=== PATIENT | female | born 1985 | race Caucasian/White ===

== ENCOUNTER 2016-12-06 14:29 | Emergency (ER) | payer OTHER ==
[~2016-12-06 14:29] MED LIST: /LAMO20TA; ACET50TA PO; ALBU17IN INH; ALBUPOW9 XX; AMBI10TA; BUPR15TA; CIPR500T4; DIFL150T; EFFE150C; IBUP80TA PO; MOM30SS PO; PRENTAB55 PO; PRENTAB7 PO; PRENTAB9 PO; RISP0.5T20; ZOLO100T
[2016-12-06] MEDS ORDERED: METOCLOPRAMIDE INJ 10MG/2ML VIAL (J2765) As Ordered ONE (15:19)
[2016-12-06] MEDS ORDERED: KETOROLAC 30 MG/ML VIAL (J1885) As Ordered ONE (15:19)
[2016-12-06] MEDS ORDERED: ACETAMINOPHEN 325 MG TAB As Ordered ONE (16:05)
[2016-12-06] MEDS ORDERED: ONDANSETRON 4MG/2ML VIAL (J2405) As Ordered ONE (17:02)
[2016-12-06] MEDS ORDERED: MORPHINE 4 MG/ML 1ML SYRINGE As Ordered ONE (17:02)
--- NOTE | 2016-12-06 18:04 | EDDOCDS ---
Physician Documentation [facility] Name: Lorraine Anders Age: 31 yrs Sex: Female : 1985 Arrival Date: 12/06/2016 Time: 14:29 Bed I5 / M5 Private MD: Sherly Archer E Disposition: 12/06/16 17:52 Discharged to Home/Self Care. Impression: Headache - Acute. - Condition is Stable. - Discharge Instructions: General Headache Without Cause, Migraine Headache. - Prescriptions for ZOFRAN ODT 4 mg - dissolve 1 tablet by ORAL route 4 times per day As needed do not chew, do not swallow whole; 10 tablet. - Medication Reconciliation, Local Pharmacy Hours form. - Follow up: Sherly Archer; When: 1 - 2 days; Reason: Recheck today's complaints, Continuance of care. Follow up: Emergency Department; Reason: Worsening of conditions. Follow up: Cris Radford; When: Call to arrange an appointment; Reason: Further diagnostic work-up, Recheck today's complaints, Continuance of care. - Problem is new. - Symptoms have improved. Historical: - Allergies: Augmentin (Swelling); PENICILLINS (Swelling); Terazol 7 (Hives); - Home Meds: 1. Maxalt-BROWNFIELD REDEVELOPMENT SPECIALIST 5 mg oral TbDL twice a day 2. amitriptyline 25 mg Oral tab nightly 3. Breo Ellipta 200-25 mcg/dose inhalation dsdv 1 puff once daily 4. Ventolin Rotahaler/Rotacaps 200 mcg Inhl CpDv 2 puff every 4 hours - PMHx: Migraine Headaches; Asthma; - PSHx: Tubal ligation; Tonsillectomy; - Social history: Smoking status: Patient states former smoker of tobacco. No barriers to communication noted, The patient speaks fluent [place] Islander, Speaks appropriately for age. - : The pt / caregiver states he / she is not on anticoagulants. Home medication list is obtained from the patient. - Exposure Risk Screening:: None identified. 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 2 in. (157.48 cm); Pain 10/10; 17:17 Pain 8/10; jjr 17:24 BP 118 / 64; Pulse 66; Resp 18; Temp 96.5; Pulse Ox 100% ; Pain 7/10; jlf 14:30 Body Mass Index 43.90 (108.86 kg, 157.48 cm) dem1 MDM: 15:14 IV Saline Lock ordered. ar2 15:14 NS 0.9% 1000 ml IV at bolus once ordered. ar2 15:14 Metoclopramide 10 mg IV at 40 mg/hr once over 15 mins ordered. ar2 15:14 ketorolac 30 mg IVP once ordered. ar2 15:55 Acetaminophen Tablet 975 mg PO once ordered. ar2 16:54 Financial registration complete. gjb 16:54 Undo -Financial registration. gjb 16:57 morphine 4 mg IVP once ordered. ef1 16:57 Ondansetron 4 mg IVP once ordered. ef1 18:00 Financial registration complete. zo 18:01 [facility] Payment Agreement was scanned into [email or web address] and attached to record. zo Administered Medications: 15:30 Drug: Metoclopramide 10 mg [metoclopramide 5 mg/mL injection solution] Route: IV; Rate: jjr 40 mg/hr; Infused Over: 15 mins; Site: left antecubital; Delivery: Syringe pump; 15:53 Follow up: IV Status: Completed infusion jjr 15:30 Drug: ketorolac 30 mg [ketorolac 30 mg/mL (1 mL) injection solution (1 mL)] Route: IVP; jjr Site: left antecubital; 15:31 Drug: NS 0.9% 1000 ml [sodium chloride 0.9 % intravenous solution] Route: IV; Rate: jjr bolus; Site: left antecubital; 17:17 Follow up: IV Status: Completed infusion; IV Intake: 1000ml jjr 16:09 Drug: Acetaminophen 975 mg [acetaminophen 325 mg tablet (3 tabs)] Route: PO; jjr 17:06 Drug: morphine 4 mg Route: IVP; Site: left antecubital; k 17:17 Follow up: Pain 8/10 Adult jjr 17:44 Follow up: Response: Pain is decreased jmk 17:06 Drug: Ondansetron 4 mg Route: IVP; Site: left antecubital; lidia Signatures: Raven Unger Jessica, RN RN jjr Robertshaw, Aaron, PA-C PA-C ar2 Paris Cleveland PA-C PA-C ef1 Kristen Alcantara RN RN ead Beck, Gabriela gjb Knapp, Jean RN jmk The chart was reviewed and I authenticate all verbal orders and agree with the evaluation and treatment provided.Attachments: 18:01 [facility] Payment Agreement zo MTDD
--- NOTE | 2016-12-06 18:04 | EDDOCDS ---
Nurse's Notes [facility] Name: Lorraine Anders Age: 31 yrs Sex: Female : 1985 Arrival Date: 12/06/2016 Time: 14:29 Bed I5 / M5 Private MD: Sherly Archer E Diagnosis: Headache-Acute Presentation: 12/06 14:32 Presenting complaint: Patient states: "I've had a migraine for over a week." Pt reports ead hx of migraines. Pt reports home medications are not helping. This patient has no additional risk factors. Adult Sepsis Screening: The patient does not have new or worsening altered mentation. Patient's respiratory rate is less than 22. Systolic blood pressure is greater than 100. Patient has a qSOFA score of 0- Negative Sepsis Screen. Suicide/Homicide risk assessment- the patient denies having any suicidal and/or homicidal ideations and does not present with any other emotional, behavioral or mental health complaints. 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 Transition of care: patient was not received from another setting of care. 14:32 Acuity: NORMA Level 3 ead 14:32 Method Of Arrival: Walkin/Carried/Asstd ead Triage Assessment: 14:34 Headache History: This patient has a history of headaches and the character of this ead headache is like all previous headaches. General: Appears in no apparent distress, uncomfortable, Behavior is appropriate for age, cooperative. Pain: Pain currently is 15 out of 10 on a pain scale. Pain began "over a week". Pain: Location: face and scalp. HIV screening NA for this visit Offered previously. Neurological: Level of Consciousness is awake, alert, obeys commands, Oriented to person, place, time. GI: Reports nausea, vomiting. 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 Maxalt-CRA 5 mg oral TbDL twice a day 2. amitriptyline 25 mg Oral tab nightly 3. Breo Ellipta 200-25 mcg/dose inhalation dsdv 1 puff once daily 4. Ventolin Rotahaler/Rotacaps 200 mcg Inhl CpDv 2 puff every 4 hours - PMHx: Migraine Headaches; Asthma; - PSHx: Tubal ligation; Tonsillectomy; - Social history: Smoking status: Patient states former smoker of tobacco. No barriers to communication noted, The patient speaks fluent Taiwanese, Speaks appropriately for age. - : The pt / caregiver states he / she is not on anticoagulants. Home medication list is obtained from the patient. - Exposure Risk Screening:: None identified. Screenin:01 Screening information is obtained from the patient. Fall risk: No risks identified. jjr Assistance ADL's: requires no assistance with activities of daily living. Abuse/DV Screen: The patient / caregiver reports he/she is: not in a situation that causes fear, pain or injury. Nutritional screening: No deficits noted. Advance Directives: There is no active DNR order. home support is adequate. Assessment: 15:23 General: Appears in no apparent distress, uncomfortable. Pain: Location: forehead, left jmk side of forehead, left temporal area, right temporal area and right side of forehead. Neurological: Level of Consciousness is awake, alert, Oriented to person, place, time. Cardiovascular: No deficits noted. Respiratory: No deficits noted. 16:09 General: Appears in no apparent distress, reports no change in SANTANA or nausea, medicated jjr per order. 16:32 General: Appears states pain has de creased from 15/10 to 9/10. when reminded that pain jmk scale only goes to 10 again states that pain was 9/10. nausea lessened. Overall presentation unchanged. 17:06 General: Appears medicated again for pain. when informed which meds she ws rec. she jmk demonstrated immediate change in demeanor..."that makes it better.". 18:01 General: Appears in no apparent distress, Behavior is appropriate for age, "I'm going jjr home to eat". Vital Signs: 14:30 BP 98 / 62; Pulse 66; Resp 18; Temp 97.3(O); Pulse Ox 98% on R/A; Weight 108.86 kg; dem1 Height 5 ft. 2 in. (157.48 cm); Pain 10/10; 17:17 Pain 8/10; jjr 17:24 BP 118 / 64; Pulse 66; Resp 18; Temp 96.5; Pulse Ox 100% ; Pain 7/10; jlf 14:30 Body Mass Index 43.90 (108.86 kg, 157.48 cm) [facility] Vitals: 14:30 Log In Time: December 06, 2016 at 14:29. [facility] ED Course: 14:30 Patient visited by Franki Devlin. dem1 14:30 Sherly Archer is Private Physician. dem1 14:30 Patient moved to Waiting dem1 14:31 Patient moved to Pre RCE dem1 14:33 Triage Initiated ead 14:47 Patient moved to Triage 1 ml6 15:05 John Wahl PA-C is PHCP. ar2 15:05 Charles Pham MD is Attending Physician. ar2 15:05 Patient visited by John Wahl PA-C. ar2 15:14 Adele Sarabia, RN is Primary Nurse. js13 15:14 Patient moved to I5 / M5 js13 15:24 Inserted saline lock: 20 gauge in left antecubital area. jmk 16:08 PHCP role handed off by John Wahl PA-C ef1 16:08 Paris Cleveland PA-C is PHCP. ef1 16:08 Patient visited by Paris Cleveland PA-C. ef1 16:09 Patient visited by Adele Sarbaia, RODOLFO. jjr 16:30 Patient visited by Paris Cleveland PA-C. ef1 16:56 Patient visited by Paris Cleveland PA-C. ef1 17:24 Patient visited by Araceli Arroyo PCA. jlf 17:25 Patient visited by Araceli Arroyo PCA. jlf 17:45 Patient visited by Paris Cleveland PA-C. ef1 17:52 Sherly Archer is Referral Physician. ef1 17:52 Cris Radford is Referral Physician. ef1 18:01 [facility] Payment Agreement was scanned into Co[employer] and attached to record. zo 18:02 Discontinued lock intact, bleeding controlled, pressure dressing applied, No jjr redness/swelling at site. No procedures done that require assistance. 18:03 The patient / caregiver is instructed regarding the plan of care and ED course. jjr Administered Medications: 15:30 Drug: Metoclopramide 10 mg [metoclopramide 5 mg/mL injection solution] Route: IV; Rate: jjr 40 mg/hr; Infused Over: 15 mins; Site: left antecubital; Delivery: Syringe pump; 15:53 Follow up: IV Status: Completed infusion jr 15:30 Drug: ketorolac 30 mg [ketorolac 30 mg/mL (1 mL) injection solution (1 mL)] Route: IVP; jr Site: left antecubital; 15:31 Drug: NS 0.9% 1000 ml [sodium chloride 0.9 % intravenous solution] Route: IV; Rate: jjr bolus; Site: left antecubital; 17:17 Follow up: IV Status: Completed infusion; IV Intake: 1000ml jr 16:09 Drug: Acetaminophen 975 mg [acetaminophen 325 mg tablet (3 tabs)] Route: PO; jr 17:06 Drug: morphine 4 mg Route: IVP; Site: left antecubital; [facility] 17:17 Follow up: Pain 8/10 Adult r 17:44 Follow up: Response: Pain is decreased [facility] 17:06 Drug: Ondansetron 4 mg Route: IVP; Site: left antecubital; [facility] Intake: 17:17 IV: 1000.00ml; Total: 1000.00ml. jjr Order Results: There are currently no results for this order. Outcome: 17:52 Discharge ordered by Provider. ef1 18:02 Discharge Assessment: patient administered narcotics - yes. Pt provided with safe jjr discharge. The following High Risk Discharge criteria are identified: None. Discharged to home ambulatory. Condition: stable. Discharge instructions given to patient, Instructed on discharge instructions, follow up and referral plans. medication usage, Demonstrated understanding of instructions, medications, Prescriptions given X 1. No special radiology studies were completed. Property sent home with patient. 18:03 Patient left the ED. jjr Signatures: Tim Donaldson,RN RN Raven Atkins Jessica RN RN John Simmons, MCKINLEY-C PA-C ar2 Paris Cleveland PA-C PA-C ef1 Glenn Lizarraga RN RN ml6 Franki Devlin dem1 Brenda Horton RN RN js13 Araceli Arroyo, NETWORK SYSTEMS ENGINEER NETWORK SYSTEMS ENGINEER jlf Kristen Alcantara,RN RN ead MTDD
--- NOTE | 2016-12-08 19:04 | EDDOCDS ---
Physician Documentation [facility] Name: Lorraine Anders Age: 31 yrs Sex: Female : 1985 Arrival Date: 12/06/2016 Time: 14:29 Bed I5 / M5 Private MD: Sherly Archer E Disposition: 12/06/16 17:52 Discharged to Home/Self Care. Impression: Headache - Acute. - Condition is Stable. - Discharge Instructions: General Headache Without Cause, Migraine Headache. - Prescriptions for ZOFRAN ODT 4 mg - dissolve 1 tablet by ORAL route 4 times per day As needed do not chew, do not swallow whole; 10 tablet. - Medication Reconciliation, Local Pharmacy Hours form. - Follow up: Sherly Archer; When: 1 - 2 days; Reason: Recheck today's complaints, Continuance of care. Follow up: Emergency Department; Reason: Worsening of conditions. Follow up: Cris Radford; When: Call to arrange an appointment; Reason: Further diagnostic work-up, Recheck today's complaints, Continuance of care. - Problem is new. - Symptoms have improved. Historical: - Allergies: Augmentin (Swelling); PENICILLINS (Swelling); Terazol 7 (Hives); - Home Meds: 1. Maxalt-MULTIMEDIA PRODUCER 5 mg oral TbDL twice a day 2. amitriptyline 25 mg Oral tab nightly 3. Breo Ellipta 200-25 mcg/dose inhalation dsdv 1 puff once daily 4. Ventolin Rotahaler/Rotacaps 200 mcg Inhl CpDv 2 puff every 4 hours - PMHx: Migraine Headaches; Asthma; - PSHx: Tubal ligation; Tonsillectomy; - Social history: Smoking status: Patient states former smoker of tobacco. No barriers to communication noted, The patient speaks fluent Fijian, Speaks appropriately for age. - : The pt / caregiver states he / she is not on anticoagulants. Home medication list is obtained from the patient. - Exposure Risk Screening:: None identified. 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 2 in. (157.48 cm); Pain 10/10; 17:17 Pain 8/10; jjr 17:24 BP 118 / 64; Pulse 66; Resp 18; Temp 96.5; Pulse Ox 100% ; Pain 7/10; jlf 14:30 Body Mass Index 43.90 (108.86 kg, 157.48 cm) dem1 MDM: 15:14 IV Saline Lock ordered. ar2 15:14 NS 0.9% 1000 ml IV at bolus once ordered. ar2 15:14 Metoclopramide 10 mg IV at 40 mg/hr once over 15 mins ordered. ar2 15:14 ketorolac 30 mg IVP once ordered. ar2 15:55 Acetaminophen Tablet 975 mg PO once ordered. ar2 16:54 Financial registration complete. gjb 16:54 Undo -Financial registration. gjb 16:57 morphine 4 mg IVP once ordered. ef1 16:57 Ondansetron 4 mg IVP once ordered. ef1 18:00 Financial registration complete. zo 18:01 [facility] Payment Agreement was scanned into EverySignal and attached to record. zo 02 11:04 T-Sheet-- Draft Copy was scanned into EverySignal and attached to record. gb Administered Medications: 12/06 15:30 Drug: Metoclopramide 10 mg [metoclopramide 5 mg/mL injection solution] Route: IV; Rate: jjr 40 mg/hr; Infused Over: 15 mins; Site: left antecubital; Delivery: Syringe pump; 15:53 Follow up: IV Status: Completed infusion jjr 15:30 Drug: ketorolac 30 mg [ketorolac 30 mg/mL (1 mL) injection solution (1 mL)] Route: IVP; jjr Site: left antecubital; 15:31 Drug: NS 0.9% 1000 ml [sodium chloride 0.9 % intravenous solution] Route: IV; Rate: jjr bolus; Site: left antecubital; 17:17 Follow up: IV Status: Completed infusion; IV Intake: 1000ml jjr 16:09 Drug: Acetaminophen 975 mg [acetaminophen 325 mg tablet (3 tabs)] Route: PO; jjr 17:06 Drug: morphine 4 mg Route: IVP; Site: left antecubital; lidia 17:17 Follow up: Pain 8/10 Adult antoniojtita 17:44 Follow up: Response: Pain is decreased lidia 17:06 Drug: Ondansetron 4 mg Route: IVP; Site: left antecubital; lidia Signatures: Veda Dudley, Reg Reg gb Raven Unger Jessica, John Blevins RN, PA-C PA-C ar2 Paris Cleveland PA-C PA-C ef1 Kristen Alcantara,Rosaline Rubio RN, Jean RN jmk The chart was reviewed and I authenticate all verbal orders and agree with the evaluation and treatment provided.Attachments: 18:01 [facility] Payment Agreement zo 12/07 11:04 T-Sheet-- Draft Copy gb Chart Complete MTDD
--- NOTE | 2016-12-08 19:04 | EDDOCDS ---
Nurse's Notes [facility] Name: Lorraine Anders Age: 31 yrs Sex: Female : 1985 Arrival Date: 12/06/2016 Time: 14:29 Bed I5 / M5 Private MD: Sherly Archer E Diagnosis: Headache-Acute Presentation: 12/06 14:32 Presenting complaint: Patient states: "I've had a migraine for over a week." Pt reports ead hx of migraines. Pt reports home medications are not helping. This patient has no additional risk factors. Adult Sepsis Screening: The patient does not have new or worsening altered mentation. Patient's respiratory rate is less than 22. Systolic blood pressure is greater than 100. Patient has a qSOFA score of 0- Negative Sepsis Screen. Suicide/Homicide risk assessment- the patient denies having any suicidal and/or homicidal ideations and does not present with any other emotional, behavioral or mental health complaints. Status: Patient is not a guest service aide or dependent. Transition of care: patient was not received from another setting of care. 14:32 Acuity: NORMA Level 3 ead 14:32 Method Of Arrival: Walkin/Carried/Asstd ead Triage Assessment: 14:34 Headache History: This patient has a history of headaches and the character of this ead headache is like all previous headaches. General: Appears in no apparent distress, uncomfortable, Behavior is appropriate for age, cooperative. Pain: Pain currently is 15 out of 10 on a pain scale. Pain began "over a week". Pain: Location: face and scalp. HIV screening NA for this visit Offered previously. Neurological: Level of Consciousness is awake, alert, obeys commands, Oriented to person, place, time. GI: Reports nausea, vomiting. 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 Maxalt-EXTRUSION PROCESS OPERATOR 5 mg oral TbDL twice a day 2. amitriptyline 25 mg Oral tab nightly 3. Breo Ellipta 200-25 mcg/dose inhalation dsdv 1 puff once daily 4. Ventolin Rotahaler/Rotacaps 200 mcg Inhl CpDv 2 puff every 4 hours - PMHx: Migraine Headaches; Asthma; - PSHx: Tubal ligation; Tonsillectomy; - Social history: Smoking status: Patient states former smoker of tobacco. No barriers to communication noted, The patient speaks fluent Nauruan, Speaks appropriately for age. - : The pt / caregiver states he / she is not on anticoagulants. Home medication list is obtained from the patient. - Exposure Risk Screening:: None identified. Screenin:01 Screening information is obtained from the patient. Fall risk: No risks identified. jjr Assistance ADL's: requires no assistance with activities of daily living. Abuse/DV Screen: The patient / caregiver reports he/she is: not in a situation that causes fear, pain or injury. Nutritional screening: No deficits noted. Advance Directives: There is no active DNR order. home support is adequate. Assessment: 15:23 General: Appears in no apparent distress, uncomfortable. Pain: Location: forehead, left jmk side of forehead, left temporal area, right temporal area and right side of forehead. Neurological: Level of Consciousness is awake, alert, Oriented to person, place, time. Cardiovascular: No deficits noted. Respiratory: No deficits noted. 16:09 General: Appears in no apparent distress, reports no change in SANTANA or nausea, medicated jjr per order. 16:32 General: Appears states pain has de creased from 15/10 to 9/10. when reminded that pain jmk scale only goes to 10 again states that pain was 9/10. nausea lessened. Overall presentation unchanged. 17:06 General: Appears medicated again for pain. when informed which meds she ws rec. she jmk demonstrated immediate change in demeanor..."that makes it better.". 18:01 General: Appears in no apparent distress, Behavior is appropriate for age, "I'm going jjr home to eat". Vital Signs: 14:30 BP 98 / 62; Pulse 66; Resp 18; Temp 97.3(O); Pulse Ox 98% on R/A; Weight 108.86 kg; dem1 Height 5 ft. 2 in. (157.48 cm); Pain 10/10; 17:17 Pain 8/10; jjr 17:24 BP 118 / 64; Pulse 66; Resp 18; Temp 96.5; Pulse Ox 100% ; Pain 7/10; jlf 14:30 Body Mass Index 43.90 (108.86 kg, 157.48 cm) [facility] Vitals: 14:30 Log In Time: December 06, 2016 at 14:29. [facility] ED Course: 14:30 Patient visited by Franki Devlin. dem1 14:30 Sherly Archer is Private Physician. dem1 14:30 Patient moved to Waiting dem1 14:31 Patient moved to Pre RCE dem1 14:33 Triage Initiated ead 14:47 Patient moved to Triage 1 ml6 15:05 John Wahl PA-C is PHCP. ar2 15:05 Charles Pham MD is Attending Physician. ar2 15:05 Patient visited by John Wahl PA-C. ar2 15:14 Adele Sarabia, RN is Primary Nurse. js13 15:14 Patient moved to I5 / M5 js13 15:24 Inserted saline lock: 20 gauge in left antecubital area. jmk 16:08 PHCP role handed off by John Wahl PA-C ef1 16:08 Paris Cleveland PA-C is PHCP. ef1 16:08 Patient visited by Paris Cleveland PA-C. ef1 16:09 Patient visited by Adele Sarabia, RODOLFO. jjr 16:30 Patient visited by Paris Cleveland PA-C. ef1 16:56 Patient visited by Paris Cleveland PA-C. ef1 17:24 Patient visited by Araceli Arroyo PCA. jlf 17:25 Patient visited by Araceli Arroyo PCA. jlf 17:45 Patient visited by Paris Cleveland PA-C. ef1 17:52 Sherly Archer is Referral Physician. ef1 17:52 Cris Radford is Referral Physician. ef1 18:01 [facility] [place] Payment Agreement was scanned into TeamLINKS and attached to record. zo 18:02 Discontinued lock intact, bleeding controlled, pressure dressing applied, No jjr redness/swelling at site. No procedures done that require assistance. 18:03 The patient / caregiver is instructed regarding the plan of care and ED course. jjr 12/07 11:04 T-Sheet-- Draft Copy was scanned into TeamLINKS and attached to record. gb Administered Medications: 02 15:30 Drug: Metoclopramide 10 mg [metoclopramide 5 mg/mL injection solution] Route: IV; Rate: jjr 40 mg/hr; Infused Over: 15 mins; Site: left antecubital; Delivery: Syringe pump; 15:53 Follow up: IV Status: Completed infusion jjr 15:30 Drug: ketorolac 30 mg [ketorolac 30 mg/mL (1 mL) injection solution (1 mL)] Route: IVP; jjr Site: left antecubital; 15:31 Drug: NS 0.9% 1000 ml [sodium chloride 0.9 % intravenous solution] Route: IV; Rate: jjr bolus; Site: left antecubital; 17:17 Follow up: IV Status: Completed infusion; IV Intake: 1000ml jr 16:09 Drug: Acetaminophen 975 mg [acetaminophen 325 mg tablet (3 tabs)] Route: PO; jr 17:06 Drug: morphine 4 mg Route: IVP; Site: left antecubital; [facility] 17:17 Follow up: Pain 8/10 Adult jr 17:44 Follow up: Response: Pain is decreased [facility] 17:06 Drug: Ondansetron 4 mg Route: IVP; Site: left antecubital; [facility] Intake: 17:17 IV: 1000.00ml; Total: 1000.00ml. jjr Order Results: There are currently no results for this order. Outcome: 17:52 Discharge ordered by Provider. ef1 18:02 Discharge Assessment: patient administered narcotics - yes. Pt provided with safe jjr discharge. The following High Risk Discharge criteria are identified: None. Discharged to home ambulatory. Condition: stable. Discharge instructions given to patient, Instructed on discharge instructions, follow up and referral plans. medication usage, Demonstrated understanding of instructions, medications, Prescriptions given X 1. No special radiology studies were completed. Property sent home with patient. 18:03 Patient left the ED. jjr Signatures: Tim Donaldson,RN RN Vead Holcomb, Carlos Reg Raven Lema Jessica, RN RN jjr Robertshaw, Aaron, PA-C PAPericoC arParis Casas PA-C PA-Carlos ef1 Glenn Lizarraga, RN RN ml6 Franki Devlin Jennifer,RN RN js13 Araceli Arroyo, KEE MAINTENANCE MECHANIC HELPER Kristen Armstrong,RN RN ead Chart Complete MTDD
--- NOTE | 2016-12-08 19:04 | EDDOCDS ---
Physician Documentation [facility] Name: Lorraine Anders Age: 31 yrs Sex: Female : 1985 Arrival Date: 12/06/2016 Time: 14:29 Bed I5 / M5 Private MD: Sherly Archer E Disposition: 12/06/16 17:52 Discharged to Home/Self Care. Impression: Headache - Acute. - Condition is Stable. - Discharge Instructions: General Headache Without Cause, Migraine Headache. - Prescriptions for ZOFRAN ODT 4 mg - dissolve 1 tablet by ORAL route 4 times per day As needed do not chew, do not swallow whole; 10 tablet. - Medication Reconciliation, Local Pharmacy Hours form. - Follow up: Sherly Archer; When: 1 - 2 days; Reason: Recheck today's complaints, Continuance of care. Follow up: Emergency Department; Reason: Worsening of conditions. Follow up: Cris Radford; When: Call to arrange an appointment; Reason: Further diagnostic work-up, Recheck today's complaints, Continuance of care. - Problem is new. - Symptoms have improved. Historical: - Allergies: Augmentin (Swelling); PENICILLINS (Swelling); Terazol 7 (Hives); - Home Meds: 1. Maxalt-SIGNING TEACHER 5 mg oral TbDL twice a day 2. amitriptyline 25 mg Oral tab nightly 3. Breo Ellipta 200-25 mcg/dose inhalation dsdv 1 puff once daily 4. Ventolin Rotahaler/Rotacaps 200 mcg Inhl CpDv 2 puff every 4 hours - PMHx: Migraine Headaches; Asthma; - PSHx: Tubal ligation; Tonsillectomy; - Social history: Smoking status: Patient states former smoker of tobacco. No barriers to communication noted, The patient speaks fluent Macedonian, Speaks appropriately for age. - : The pt / caregiver states he / she is not on anticoagulants. Home medication list is obtained from the patient. - Exposure Risk Screening:: None identified. 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 2 in. (157.48 cm); Pain 10/10; 17:17 Pain 8/10; jjr 17:24 BP 118 / 64; Pulse 66; Resp 18; Temp 96.5; Pulse Ox 100% ; Pain 7/10; jlf 14:30 Body Mass Index 43.90 (108.86 kg, 157.48 cm) dem1 MDM: 15:14 IV Saline Lock ordered. ar2 15:14 NS 0.9% 1000 ml IV at bolus once ordered. ar2 15:14 Metoclopramide 10 mg IV at 40 mg/hr once over 15 mins ordered. ar2 15:14 ketorolac 30 mg IVP once ordered. ar2 15:55 Acetaminophen Tablet 975 mg PO once ordered. ar2 16:54 Financial registration complete. gjb 16:54 Undo -Financial registration. gjb 16:57 morphine 4 mg IVP once ordered. ef1 16:57 Ondansetron 4 mg IVP once ordered. ef1 18:00 Financial registration complete. zo 18:01 [facility] Payment Agreement was scanned into [employer] and attached to record. zo 02 11:04 T-Sheet-- Draft Copy was scanned into [employer] and attached to record. gb Administered Medications: 12/06 15:30 Drug: Metoclopramide 10 mg [metoclopramide 5 mg/mL injection solution] Route: IV; Rate: jjr 40 mg/hr; Infused Over: 15 mins; Site: left antecubital; Delivery: Syringe pump; 15:53 Follow up: IV Status: Completed infusion jjr 15:30 Drug: ketorolac 30 mg [ketorolac 30 mg/mL (1 mL) injection solution (1 mL)] Route: IVP; jjr Site: left antecubital; 15:31 Drug: NS 0.9% 1000 ml [sodium chloride 0.9 % intravenous solution] Route: IV; Rate: jjr bolus; Site: left antecubital; 17:17 Follow up: IV Status: Completed infusion; IV Intake: 1000ml jjr 16:09 Drug: Acetaminophen 975 mg [acetaminophen 325 mg tablet (3 tabs)] Route: PO; jjr 17:06 Drug: morphine 4 mg Route: IVP; Site: left antecubital; lidia 17:17 Follow up: Pain 8/10 Adult antoniojtita 17:44 Follow up: Response: Pain is decreased lidia 17:06 Drug: Ondansetron 4 mg Route: IVP; Site: left antecubital; lidia Signatures: Veda Dudley, Reg Reg gb Raven Unger Jessica, John Blevins RN, PA-C PA-C ar2 Paris Cleveland PA-C PA-C ef1 Kristen Alcantara,Rosaline Rubio RN, Jean RN jmk The chart was reviewed and I authenticate all verbal orders and agree with the evaluation and treatment provided.Attachments: 18:01 [facility] Payment Agreement zo 12/07 11:04 T-Sheet-- Draft Copy gb Chart Complete MTDD
== END 2016-12-06 18:03 | disposition home or self-care (01) ==
LOC: M ED 14:29
DX: R51 Headache (principal); J45.909 Unspecified asthma, uncomplicated; Z87.891 Personal history of nicotine dependence; Z79.899 Other long term (current) drug therapy; Z88.0 Allergy status to penicillin; Z88.8 Allergy status to other drugs, medicaments and biological substances
CPT/HCPCS: 96361; 96365; 96375; 99283; J1885; J2405; J2765

== ENCOUNTER 2016-12-13 12:20 | Emergency (ER) | payer OTHER ==
[2016-12-13] MEDS ORDERED: KETOROLAC 30 MG/ML VIAL (J1885) As Ordered ONE (14:50)
[2016-12-13] MEDS ORDERED: METOCLOPRAMIDE INJ 10MG/2ML VIAL (J2765) As Ordered ONE (14:50)
[2016-12-13] MEDS ORDERED: diphenhydrAMINE INJ 50MG/ML VIAL (J1200) As Ordered ONE (14:50)
[2016-12-13] MEDS ORDERED: methylPREDNISolone INJ 125 MG/2 ML VIAL (J2930) As Ordered ONE (15:27)
--- NOTE | 2016-12-13 16:04 | EDDOCDS ---
Physician Documentation [facility] Name: Lorraine Anders Age: 31 yrs Sex: Female : 1985 Arrival Date: 12/13/2016 Time: 12:20 Bed I5 / M5 Private MD: Sherly Archer E Disposition: 12/13/16 15:45 Discharged to Home/Self Care. Impression: Headache. - Condition is Stable. - Discharge Instructions: General Headache Without Cause. - Prescriptions for Naprosyn 500 mg Oral Tablet - take 1 tablet by ORAL route 2 times per day take with food; 30 tablet. - Medication Reconciliation, Work Release Form - 1 day form. - Follow up: Sherly Archer; When: Call to arrange an appointment; Reason: Wound/Symptom Recheck, Recheck today's complaints, Worsening of conditions, Continuance of care. - Problem is an acute exacerbation. - Symptoms have improved. Historical: - Allergies: Augmentin (Swelling); PENICILLINS (Swelling); Terazol 7 (Hives); - Home Meds: 1. amitriptyline 25 mg Oral tab nightly 2. Breo Ellipta 200-25 mcg/dose inhalation dsdv 1 puff once daily 3. Maxalt-JUNIOR BOOKKEEPER 5 mg oral TbDL twice a day 4. Ventolin Rotahaler/Rotacaps 200 mcg Inhl CpDv 2 puff every 4 hours - PMHx: Asthma; Migraine Headaches; - PSHx: Tubal ligation; Tonsillectomy; - Social history: No barriers to communication noted, The patient speaks fluent Romanian, Smoking status: Patient states former smoker of tobacco. - Family history: Not pertinent. - : The pt / caregiver states he / she is not on anticoagulants. Home medication list is obtained from the patient. - Exposure Risk Screening:: None identified. 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 2 in. (157.48 cm) (R); Pain 10/10; 15:52 BP 115 / 56; Pulse 76; Resp 20; Temp 96.8(T); Pulse Ox 100% on R/A; Pain 10/10; dsf 12:22 Body Mass Index 45.73 (113.40 kg, 157.48 cm) ct3 MDM: 14:23 IV Saline Lock ordered. cc10 14:23 NS 0.9% 1000 ml IV at bolus once ordered. cc10 14:23 diphenhydrAMINE 25 mg IVP once ordered. cc10 14:23 Metoclopramide 10 mg IV at 40 mg/hr once over 15 mins ordered. cc10 14:23 ketorolac 30 mg IVP once ordered. cc10 15:27 Solu-MEDROL 125 mg IVP once ordered. dsf 15:34 Financial registration complete. gjb 15:56 [facility] Payment Agreement was scanned into [employer] and attached to record. gjb Administered Medications: 14:59 Drug: NS 0.9% 1000 ml [sodium chloride 0.9 % injection solution] Route: IV; Rate: dsf bolus; Site: left antecubital; 15:53 Follow up: IV Status: Completed infusion; IV Intake: 1000ml dsf 14:59 Drug: diphenhydrAMINE 25 mg [diphenhydramine 50 mg/mL injection solution (0.5 mL)] dsf Route: IVP; Site: left antecubital; 14:59 Drug: Metoclopramide 10 mg [metoclopramide 5 mg/mL injection solution] Route: IV; Rate: dsf 40 mg/hr; Infused Over: 15 mins; Site: left antecubital; 15:26 Follow up: IV Status: Completed infusion; IV Intake: 10ml dsf 14:59 Drug: ketorolac 30 mg [ketorolac 30 mg/mL (1 mL) injection solution (1 mL)] Route: IVP; dsf Site: left antecubital; 15:29 Drug: Solu-MEDROL 125 mg [Solu-Medrol 500 mg intravenous solution (125 mg)] Route: IVP; dsf Site: right antecubital; Signatures: Alisa DíazRN RN dsf Rosa Stewart RN RN mk4 Mitchell Blancas PA-C PANik [email or web address] Rosaline Alexandra The chart was reviewed and I authenticate all verbal orders and agree with the evaluation and treatment provided.Attachments: 15:56 [facility] Payment Agreement gjb MTDD
--- NOTE | 2016-12-13 16:04 | EDDOCDS ---
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 This patient has no additional risk factors. Adult Sepsis Screening: The patient does not have new or worsening altered mentation. Patient's respiratory rate is less than 22. Systolic blood pressure is greater than 100. Patient has a qSOFA score of 0- Negative Sepsis Screen. Suicide/Homicide risk assessment- the patient denies having any suicidal and/or homicidal ideations and does not present with any other emotional, behavioral or mental health complaints. 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 Transition of care: patient was not received from another setting of care. 12:24 Acuity: NORMA Level 3 4 12:24 Method Of Arrival: Walkin/Carried/Asstd 4 Triage Assessment: 12:28 Headache History: This headache is like all previous headaches. General: Appears 4 uncomfortable. Pain: Pain currently is 10 out of 10 on a pain scale. Pain began 3 weeks ago Also complains of nausea. HIV screening NA for this visit Offered previously. Neurological: Level of Consciousness is awake. 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 amitriptyline 25 mg Oral tab nightly 2. Breo Ellipta 200-25 mcg/dose inhalation dsdv 1 puff once daily 3. Maxalt-GOODWILL AMBASSADOR 5 mg oral TbDL twice a day 4. Ventolin Rotahaler/Rotacaps 200 mcg Inhl CpDv 2 puff every 4 hours - PMHx: Asthma; Migraine Headaches; - PSHx: Tubal ligation; Tonsillectomy; - Social history: No barriers to communication noted, The patient speaks fluent Tajik, Smoking status: Patient states former smoker of tobacco. - Family history: Not pertinent. - : The pt / caregiver states he / she is not on anticoagulants. Home medication list is obtained from the patient. - Exposure Risk Screening:: None identified. Screenin:52 Screening information is obtained from the patient. Fall risk: No risks identified. dsf Assistance ADL's: requires no assistance with activities of daily living. Abuse/DV Screen: The patient / caregiver reports he/she is: not in a situation that causes fear, pain or injury. Nutritional screening: No deficits noted. Advance Directives: Currently, there is no health care proxy. home support is adequate. Assessment: 15:00 Adult Sepsis Screening: The patient does not have new or worsening altered mentation. dsf Patient's respiratory rate is less than 22. Systolic blood pressure is greater than 100. Patient has a qSOFA score of 0- Negative Sepsis Screen. General: Appears in no apparent distress, Behavior is appropriate for age, cooperative. Pain: Pain currently is 10 out of 10 on a pain scale. Quality of pain is described as sharp. Pain: Pain began few weeks ago. Neurological: Level of Consciousness is awake, alert, Oriented to person, place, time. Cardiovascular: Capillary refill < 3 seconds. Respiratory: Airway is patent Respiratory effort is even, unlabored, Respiratory pattern is regular, symmetrical. GI: Abdomen is non- distended Reports nausea. Derm: Skin is pink, warm & dry. 15:27 General: pt reports pain level has unchanged provider notified new orders received . dsf 15:52 General: Appears in no apparent distress, Behavior is appropriate for age, cooperative. dsf Neurological: Level of Consciousness is awake, alert. Cardiovascular: Capillary refill < 3 seconds. Respiratory: Airway is patent Respiratory effort is even, unlabored, Respiratory pattern is regular, symmetrical. Derm: Skin is pink, warm & dry. Vital Signs: 12:22 BP 128 / 88; Pulse 77; Resp 18; Temp 97.5(O); Pulse Ox 100% on R/A; Weight 113.4 kg ct3 (R); Height 5 ft. 2 in. (157.48 cm) (R); Pain 10/10; 15:52 BP 115 / 56; Pulse 76; Resp 20; Temp 96.8(T); Pulse Ox 100% on R/A; Pain 10/10; dsf 12:22 Body Mass Index 45.73 (113.40 kg, 157.48 cm) ct3 Vitals: 12:22 Log In Time: December 13, 2016 at 12:20. ct3 ED Course: 12:22 Patient visited by Melvina Delacruz PCA. ct3 12:22 Sherly Archer is Private Physician. ct3 12:22 Patient moved to Waiting ct3 12:23 Patient moved to Pre RCE ct3 12:27 Triage Initiated mk4 13:38 Patient moved to Triage 1 mk4 13:59 Mitchell Blancas [facility]C [facility]. cc10 13:59 Charles Pham MD is Attending Physician. cc10 14:01 Patient visited by Mitchell Blancas PA-C. cc10 14:01 Patient visited by Mitchell Blancas PA-C. cc10 14:24 Adele Black,RN is Primary Nurse. kcs 14:24 Brenda Leal, RODOLFO is Primary Nurse. kcs 14:24 Patient moved to I5 / M5 kcs 14:59 Inserted saline lock: 18 gauge in right antecubital area The patient tolerated the dsf procedure well. 15:01 Patient visited by Alisa Díaz,RODOLFO. dsf 15:30 Patient visited by Alisa Díaz,RODOLFO. dsf 15:45 Sherly Archer is Referral Physician. cc10 15:52 The patient / caregiver is instructed regarding the plan of care and ED course. dsf 15:52 Discontinued lock intact, bleeding controlled, pressure dressing applied, No dsf redness/swelling at site. No procedures done that require assistance. 15:56 [facility] Payment Agreement was scanned into [employer] and attached to record. gjb Administered Medications: 14:59 Drug: NS 0.9% 1000 ml [sodium chloride 0.9 % injection solution] Route: IV; Rate: dsf bolus; Site: left antecubital; 15:53 Follow up: IV Status: Completed infusion; IV Intake: 1000ml dsf 14:59 Drug: diphenhydrAMINE 25 mg [diphenhydramine 50 mg/mL injection solution (0.5 mL)] dsf Route: IVP; Site: left antecubital; 14:59 Drug: Metoclopramide 10 mg [metoclopramide 5 mg/mL injection solution] Route: IV; Rate: dsf 40 mg/hr; Infused Over: 15 mins; Site: left antecubital; 15:26 Follow up: IV Status: Completed infusion; IV Intake: 10ml dsf 14:59 Drug: ketorolac 30 mg [ketorolac 30 mg/mL (1 mL) injection solution (1 mL)] Route: IVP; dsf Site: left antecubital; 15:29 Drug: Solu-MEDROL 125 mg [Solu-Medrol 500 mg intravenous solution (125 mg)] Route: IVP; dsf Site: right antecubital; Intake: 15:26 IV: 10.00ml; Total: 10.00ml. dsf 15:53 IV: 1000.00ml; Total: 1010.00ml. dsf Order Results: There are currently no results for this order. Outcome: 15:45 Discharge ordered by Provider. cc10 15:53 Discharge Assessment: Patient awake, alert and oriented x 3. No cognitive and/or dsf functional deficits noted. Patient verbalized understanding of disposition instructions. patient administered narcotics - no. The following High Risk Discharge criteria are identified: None. Condition: stable. Discharge instructions given to patient, Instructed on discharge instructions, follow up and referral plans. medication usage, Demonstrated understanding of instructions, medications, Pt was receptive of discharge instructions/ teaching. Prescriptions given X 1, Work note provided to patient. No special radiology studies were completed. Property sent home with patient. 16:03 Patient left the ED. dsf Signatures: Danita Carr RN RN kcs Taveras, Consuelo, VENEER DEPARTMENT MANAGER VENEER DEPARTMENT MANAGER ct3 Alisa Díaz RN RN dsf Rosa Stewart RN RN mk4 Mitchell Blancas, PA-C PA-C cc10 Rosaline Alexandra MTDD
--- NOTE | 2016-12-15 17:04 | EDDOCDS ---
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 This patient has no additional risk factors. Adult Sepsis Screening: The patient does not have new or worsening altered mentation. Patient's respiratory rate is less than 22. Systolic blood pressure is greater than 100. Patient has a qSOFA score of 0- Negative Sepsis Screen. Suicide/Homicide risk assessment- the patient denies having any suicidal and/or homicidal ideations and does not present with any other emotional, behavioral or mental health complaints. 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 Transition of care: patient was not received from another setting of care. 12:24 Acuity: NORMA Level 3 4 12:24 Method Of Arrival: Walkin/Carried/Asstd 4 Triage Assessment: 12:28 Headache History: This headache is like all previous headaches. General: Appears 4 uncomfortable. Pain: Pain currently is 10 out of 10 on a pain scale. Pain began 3 weeks ago Also complains of nausea. HIV screening NA for this visit Offered previously. Neurological: Level of Consciousness is awake. 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 amitriptyline 25 mg Oral tab nightly 2. Breo Ellipta 200-25 mcg/dose inhalation dsdv 1 puff once daily 3. Maxalt-MANUFACTURING TECH 5 mg oral TbDL twice a day 4. Ventolin Rotahaler/Rotacaps 200 mcg Inhl CpDv 2 puff every 4 hours - PMHx: Asthma; Migraine Headaches; - PSHx: Tubal ligation; Tonsillectomy; - Social history: No barriers to communication noted, The patient speaks fluent Malay, Smoking status: Patient states former smoker of tobacco. - Family history: Not pertinent. - : The pt / caregiver states he / she is not on anticoagulants. Home medication list is obtained from the patient. - Exposure Risk Screening:: None identified. Screenin:52 Screening information is obtained from the patient. Fall risk: No risks identified. dsf Assistance ADL's: requires no assistance with activities of daily living. Abuse/DV Screen: The patient / caregiver reports he/she is: not in a situation that causes fear, pain or injury. Nutritional screening: No deficits noted. Advance Directives: Currently, there is no health care proxy. home support is adequate. Assessment: 15:00 Adult Sepsis Screening: The patient does not have new or worsening altered mentation. dsf Patient's respiratory rate is less than 22. Systolic blood pressure is greater than 100. Patient has a qSOFA score of 0- Negative Sepsis Screen. General: Appears in no apparent distress, Behavior is appropriate for age, cooperative. Pain: Pain currently is 10 out of 10 on a pain scale. Quality of pain is described as sharp. Pain: Pain began few weeks ago. Neurological: Level of Consciousness is awake, alert, Oriented to person, place, time. Cardiovascular: Capillary refill < 3 seconds. Respiratory: Airway is patent Respiratory effort is even, unlabored, Respiratory pattern is regular, symmetrical. GI: Abdomen is non- distended Reports nausea. Derm: Skin is pink, warm & dry. 15:27 General: pt reports pain level has unchanged provider notified new orders received . dsf 15:52 General: Appears in no apparent distress, Behavior is appropriate for age, cooperative. dsf Neurological: Level of Consciousness is awake, alert. Cardiovascular: Capillary refill < 3 seconds. Respiratory: Airway is patent Respiratory effort is even, unlabored, Respiratory pattern is regular, symmetrical. Derm: Skin is pink, warm & dry. Vital Signs: 12:22 BP 128 / 88; Pulse 77; Resp 18; Temp 97.5(O); Pulse Ox 100% on R/A; Weight 113.4 kg ct3 (R); Height 5 ft. 2 in. (157.48 cm) (R); Pain 10/10; 15:52 BP 115 / 56; Pulse 76; Resp 20; Temp 96.8(T); Pulse Ox 100% on R/A; Pain 10/10; dsf 12:22 Body Mass Index 45.73 (113.40 kg, 157.48 cm) ct3 Vitals: 12:22 Log In Time: December 13, 2016 at 12:20. ct3 ED Course: 12:22 Patient visited by Melvina Delacruz PCA. ct3 12:22 Sherly Archer is Private Physician. ct3 12:22 Patient moved to Waiting ct3 12:23 Patient moved to Pre RCE ct3 12:27 Triage Initiated mk4 13:38 Patient moved to Triage 1 mk4 13:59 Mitchell Blancas PA-C is PHCP. cc10 13:59 Charles Pham MD is Attending Physician. cc10 14:01 Patient visited by Mitchell Blancas PA-C. cc10 14:01 Patient visited by Mitchell Blancas PA-C. cc10 14:24 Adele Black,RN is Primary Nurse. kcs 14:24 Brenda Leal, RODOLFO is Primary Nurse. kcs 14:24 Patient moved to I5 / M5 kcs 14:59 Inserted saline lock: 18 gauge in right antecubital area The patient tolerated the dsf procedure well. 15:01 Patient visited by Alisa Díaz,RODOLFO. dsf 15:30 Patient visited by Alisa Díaz,RODOLFO. dsf 15:45 Sherly Archer is Referral Physician. cc10 15:52 The patient / caregiver is instructed regarding the plan of care and ED course. dsf 15:52 Discontinued lock intact, bleeding controlled, pressure dressing applied, No dsf redness/swelling at site. No procedures done that require assistance. 15:56 [facility] Payment Agreement was scanned into [employer] and attached to record. gjb 12/14 10:48 T-Sheet-- Draft Copy was scanned into [employer] and attached to record. gb Administered Medications: 12/13 14:59 Drug: NS 0.9% 1000 ml [sodium chloride 0.9 % injection solution] Route: IV; Rate: dsf bolus; Site: left antecubital; 15:53 Follow up: IV Status: Completed infusion; IV Intake: 1000ml dsf 14:59 Drug: diphenhydrAMINE 25 mg [diphenhydramine 50 mg/mL injection solution (0.5 mL)] dsf Route: IVP; Site: left antecubital; 14:59 Drug: Metoclopramide 10 mg [metoclopramide 5 mg/mL injection solution] Route: IV; Rate: dsf 40 mg/hr; Infused Over: 15 mins; Site: left antecubital; 15:26 Follow up: IV Status: Completed infusion; IV Intake: 10ml dsf 14:59 Drug: ketorolac 30 mg [ketorolac 30 mg/mL (1 mL) injection solution (1 mL)] Route: IVP; dsf Site: left antecubital; 15:29 Drug: Solu-MEDROL 125 mg [Solu-Medrol 500 mg intravenous solution (125 mg)] Route: IVP; dsf Site: right antecubital; Intake: 15:26 IV: 10.00ml; Total: 10.00ml. dsf 15:53 IV: 1000.00ml; Total: 1010.00ml. dsf Order Results: There are currently no results for this order. Outcome: 15:45 Discharge ordered by Provider. cc10 15:53 Discharge Assessment: Patient awake, alert and oriented x 3. No cognitive and/or dsf functional deficits noted. Patient verbalized understanding of disposition instructions. patient administered narcotics - no. The following High Risk Discharge criteria are identified: None. Condition: stable. Discharge instructions given to patient, Instructed on discharge instructions, follow up and referral plans. medication usage, Demonstrated understanding of instructions, medications, Pt was receptive of discharge instructions/ teaching. Prescriptions given X 1, Work note provided to patient. No special radiology studies were completed. Property sent home with patient. 16:03 Patient left the ED. dsf Signatures: Danita Carr, RN RN Veda Griffith, Reg Reg gb Nubia, Melvina, CURING SUPERVISOR CURING SUPERVISOR ct3 Alisa Díaz RN RN dsf Rosa Stewart RN RN mk4 Mitchell Blancas, PA-C PAPericoC cc10 Rosaline Alexandar Chart Complete MTDD
--- NOTE | 2016-12-15 17:04 | EDDOCDS ---
Physician Documentation [facility] Name: Lorraien Anders Age: 31 yrs Sex: Female : 1985 Arrival Date: 12/13/2016 Time: 12:20 Bed I5 / M5 Private MD: Sherly Archer E Disposition: 12/13/16 15:45 Discharged to Home/Self Care. Impression: Headache. - Condition is Stable. - Discharge Instructions: General Headache Without Cause. - Prescriptions for Naprosyn 500 mg Oral Tablet - take 1 tablet by ORAL route 2 times per day take with food; 30 tablet. - Medication Reconciliation, Work Release Form - 1 day form. - Follow up: Sherly Archer; When: Call to arrange an appointment; Reason: Wound/Symptom Recheck, Recheck today's complaints, Worsening of conditions, Continuance of care. - Problem is an acute exacerbation. - Symptoms have improved. Historical: - Allergies: Augmentin (Swelling); PENICILLINS (Swelling); Terazol 7 (Hives); - Home Meds: 1. amitriptyline 25 mg Oral tab nightly 2. Breo Ellipta 200-25 mcg/dose inhalation dsdv 1 puff once daily 3. Maxalt-DIRECTOR SPEECH 5 mg oral TbDL twice a day 4. Ventolin Rotahaler/Rotacaps 200 mcg Inhl CpDv 2 puff every 4 hours - PMHx: Asthma; Migraine Headaches; - PSHx: Tubal ligation; Tonsillectomy; - Social history: No barriers to communication noted, The patient speaks fluent Hebrew, Smoking status: Patient states former smoker of tobacco. - Family history: Not pertinent. - : The pt / caregiver states he / she is not on anticoagulants. Home medication list is obtained from the patient. - Exposure Risk Screening:: None identified. 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 2 in. (157.48 cm) (R); Pain 10/10; 15:52 BP 115 / 56; Pulse 76; Resp 20; Temp 96.8(T); Pulse Ox 100% on R/A; Pain 10/10; dsf 12:22 Body Mass Index 45.73 (113.40 kg, 157.48 cm) ct3 MDM: 14:23 IV Saline Lock ordered. cc10 14:23 NS 0.9% 1000 ml IV at bolus once ordered. cc10 14:23 diphenhydrAMINE 25 mg IVP once ordered. cc10 14:23 Metoclopramide 10 mg IV at 40 mg/hr once over 15 mins ordered. cc10 14:23 ketorolac 30 mg IVP once ordered. cc10 15:27 Solu-MEDROL 125 mg IVP once ordered. dsf 15:34 Financial registration complete. [facility] 15:56 [facility] Payment Agreement was scanned into SnapMyAd and attached to record. [facility] 02 10:48 T-Sheet-- Draft Copy was scanned into SnapMyAd and attached to record. gb Administered Medications: 12/13 14:59 Drug: NS 0.9% 1000 ml [sodium chloride 0.9 % injection solution] Route: IV; Rate: dsf bolus; Site: left antecubital; 15:53 Follow up: IV Status: Completed infusion; IV Intake: 1000ml dsf 14:59 Drug: diphenhydrAMINE 25 mg [diphenhydramine 50 mg/mL injection solution (0.5 mL)] dsf Route: IVP; Site: left antecubital; 14:59 Drug: Metoclopramide 10 mg [metoclopramide 5 mg/mL injection solution] Route: IV; Rate: dsf 40 mg/hr; Infused Over: 15 mins; Site: left antecubital; 15:26 Follow up: IV Status: Completed infusion; IV Intake: 10ml dsf 14:59 Drug: ketorolac 30 mg [ketorolac 30 mg/mL (1 mL) injection solution (1 mL)] Route: IVP; dsf Site: left antecubital; 15:29 Drug: Solu-MEDROL 125 mg [Solu-Medrol 500 mg intravenous solution (125 mg)] Route: IVP; dsf Site: right antecubital; Signatures: Veda Dudley, Reg Reg gb Alisa Díaz RN RN dsf Rosa Stewart RN RN mk4 Mitchell Blancas PA-C PANik cc10 Rosaline Alexandra The chart was reviewed and I authenticate all verbal orders and agree with the evaluation and treatment provided.Attachments: 15:56 [facility] Payment Agreement gjb 12/14 10:48 T-Sheet-- Draft Copy gb Chart Complete MTDD
--- NOTE | 2016-12-15 17:04 | EDDOCDS ---
Physician Documentation [facility] Name: Lorraine Anders Age: 31 yrs Sex: Female : 1985 Arrival Date: 12/13/2016 Time: 12:20 Bed I5 / M5 Private MD: Sherly Archer E Disposition: 12/13/16 15:45 Discharged to Home/Self Care. Impression: Headache. - Condition is Stable. - Discharge Instructions: General Headache Without Cause. - Prescriptions for Naprosyn 500 mg Oral Tablet - take 1 tablet by ORAL route 2 times per day take with food; 30 tablet. - Medication Reconciliation, Work Release Form - 1 day form. - Follow up: Sherly Archer; When: Call to arrange an appointment; Reason: Wound/Symptom Recheck, Recheck today's complaints, Worsening of conditions, Continuance of care. - Problem is an acute exacerbation. - Symptoms have improved. Historical: - Allergies: Augmentin (Swelling); PENICILLINS (Swelling); Terazol 7 (Hives); - Home Meds: 1. amitriptyline 25 mg Oral tab nightly 2. Breo Ellipta 200-25 mcg/dose inhalation dsdv 1 puff once daily 3. Maxalt-HAT LACER 5 mg oral TbDL twice a day 4. Ventolin Rotahaler/Rotacaps 200 mcg Inhl CpDv 2 puff every 4 hours - PMHx: Asthma; Migraine Headaches; - PSHx: Tubal ligation; Tonsillectomy; - Social history: No barriers to communication noted, The patient speaks fluent Belarusian, Smoking status: Patient states former smoker of tobacco. - Family history: Not pertinent. - : The pt / caregiver states he / she is not on anticoagulants. Home medication list is obtained from the patient. - Exposure Risk Screening:: None identified. 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 2 in. (157.48 cm) (R); Pain 10/10; 15:52 BP 115 / 56; Pulse 76; Resp 20; Temp 96.8(T); Pulse Ox 100% on R/A; Pain 10/10; dsf 12:22 Body Mass Index 45.73 (113.40 kg, 157.48 cm) ct3 MDM: 14:23 IV Saline Lock ordered. cc10 14:23 NS 0.9% 1000 ml IV at bolus once ordered. cc10 14:23 diphenhydrAMINE 25 mg IVP once ordered. cc10 14:23 Metoclopramide 10 mg IV at 40 mg/hr once over 15 mins ordered. cc10 14:23 ketorolac 30 mg IVP once ordered. cc10 15:27 Solu-MEDROL 125 mg IVP once ordered. dsf 15:34 Financial registration complete. [facility] 15:56 [facility] Payment Agreement was scanned into Reclog and attached to record. [facility] 02 10:48 T-Sheet-- Draft Copy was scanned into Reclog and attached to record. gb Administered Medications: 12/13 14:59 Drug: NS 0.9% 1000 ml [sodium chloride 0.9 % injection solution] Route: IV; Rate: dsf bolus; Site: left antecubital; 15:53 Follow up: IV Status: Completed infusion; IV Intake: 1000ml dsf 14:59 Drug: diphenhydrAMINE 25 mg [diphenhydramine 50 mg/mL injection solution (0.5 mL)] dsf Route: IVP; Site: left antecubital; 14:59 Drug: Metoclopramide 10 mg [metoclopramide 5 mg/mL injection solution] Route: IV; Rate: dsf 40 mg/hr; Infused Over: 15 mins; Site: left antecubital; 15:26 Follow up: IV Status: Completed infusion; IV Intake: 10ml dsf 14:59 Drug: ketorolac 30 mg [ketorolac 30 mg/mL (1 mL) injection solution (1 mL)] Route: IVP; dsf Site: left antecubital; 15:29 Drug: Solu-MEDROL 125 mg [Solu-Medrol 500 mg intravenous solution (125 mg)] Route: IVP; dsf Site: right antecubital; Signatures: Veda Dudley, Reg Reg gb Alisa Díaz RN RN dsf Rosa Stewart RN RN mk4 Mitchell Blancas PA-C PANik cc10 Rosaline Alexadnra The chart was reviewed and I authenticate all verbal orders and agree with the evaluation and treatment provided.Attachments: 15:56 [facility] Payment Agreement gjb 12/14 10:48 T-Sheet-- Draft Copy gb Chart Complete MTDD
== END 2016-12-13 16:03 | disposition home or self-care (01) ==
LOC: M ED 12:20
DX: G43.909 Migraine, unspecified, not intractable, without status migrainosus (principal); J45.909 Unspecified asthma, uncomplicated; E66.8 Other obesity; Z68.42 Body mass index [BMI] 45.0-49.9, adult; Z79.899 Other long term (current) drug therapy; Z79.51 Long term (current) use of inhaled steroids; Z88.0 Allergy status to penicillin; Z88.1 Allergy status to other antibiotic agents; Z88.8 Allergy status to other drugs, medicaments and biological substances
CPT/HCPCS: 96365; 96375; 99283; J1200; J1885; J2765; J2930

== ENCOUNTER → 2017-02-01 | Outpatient (REF) | payer OTHER | LOC: M LAB REF 16:30 | PROVIDERS: ATTEND Internal Medicine | DX: Z77.011 Contact with and (suspected) exposure to lead (principal) ==

== ENCOUNTER 2017-05-02 22:41 | Emergency (ER) | payer MEDICAID, OTHER ==
[~2017-05-02] VITALS: Ht 157.5 cm; Wt 97.7 kg
[2017-05-02 22:42] VITALS: BP 110/72
[2017-05-02] MEDS ORDERED: TOPI25TA10 (22:54)
[2017-05-02] MEDS ORDERED: BREO1INH3 (22:54)
[2017-05-02] MEDS ORDERED: OMEP40CA2 (22:54)
[2017-05-02] MEDS ORDERED: VENL75CA47 PO (22:54)
[2017-05-02] MEDS ORDERED: ALBU17IN (22:54)
[2017-05-02] MEDS ORDERED: AMIT25TA (22:54)
[2017-05-02] MEDS ORDERED: TOPI100T9 (22:54)
[2017-05-03] MEDS ORDERED: diphenhydrAMINE 25 MG CAP PO ONE
[2017-05-03] MEDS ORDERED: ZYRT10TA2 PO (00:04)
[2017-05-03] MEDS ORDERED: SUDA30TA PO (00:04)
[2017-05-03] MEDS ORDERED: FLON1SPR (00:04)
== END 2017-05-03 00:28 | disposition home or self-care (01) ==
LOC: M ED 22:41
DX: J30.9 Allergic rhinitis, unspecified (principal)

== ENCOUNTER 2017-05-21 11:40 | Emergency (ER) | payer MEDICAID, OTHER ==
[~2017-05-21] VITALS: Ht 160 cm; Wt 90.9 kg
[~2017-05-21 11:40] MED LIST changes: +ALBU17IN; +AMIT25TA; +BREO1INH3; +FLON1SPR; +OMEP40CA2; +SUDA30TA PO; +TOPI100T9; +TOPI25TA10; +VENL75CA47 PO; +ZYRT10TA2 PO
[2017-05-21 11:42] VITALS: BP 107/65
--- NOTE | 2017-05-21 14:31 | REP ---
LEFT HAND, FOUR VIEWS: There is no evidence of an acute fracture, dislocation or intrinsic bone disease. IMPRESSION: No fracture or dislocation. Signed by Surendra Cook MD 05/21/2017 03:23 P
== END 2017-05-21 12:57 | disposition home or self-care (01) ==
LOC: M ED 11:40
DX: S60.032A Contusion of left middle finger without damage to nail, initial encounter (principal); S60.042A Contusion of left ring finger without damage to nail, initial encounter; F31.9 Bipolar disorder, unspecified; F43.10 Post-traumatic stress disorder, unspecified; W23.0XXA Caught, crushed, jammed, or pinched between moving objects, initial encounter; Y92.008 Other place in unspecified non-institutional (private) residence as the place of occurrence of the external cause; Y99.9 Unspecified external cause status; Y93.9 Activity, unspecified; Z88.0 Allergy status to penicillin; Z88.1 Allergy status to other antibiotic agents; Z88.8 Allergy status to other drugs, medicaments and biological substances; Z79.899 Other long term (current) drug therapy

== ENCOUNTER 2017-05-28 20:33 | Emergency (ER) | payer OTHER ==
[~2017-05-28] VITALS: Ht 157.5 cm; Wt 97.2 kg
[2017-05-28 21:34] LABS: MEAN CORPUSCULAR HEMOGLOBIN 31.7 pg (27.0-33.0); MEAN CORPUSCULAR HGB CONC 35.2 g/dl (32.0-36.5); MEAN CORPUSCULAR VOLUME 90.2 fl (80.0-96.0); RED CELL DISTRIBUTION WIDTH 12.3 % (11.5-14.5); WHITE BLOOD COUNT 11.5 K/mm3 (4.0-10.0)
[2017-05-28 21:49] LABS: CONTROL LINE HCG INT CTR LINE PRESENT
[2017-05-28 21:59] LABS: ANION GAP 10 MEQ/L (8-16); BLOOD UREA NITROGEN 7 MG/DL (7-18); CALCIUM LEVEL 9.1 MG/DL (8.5-10.1); CARBON DIOXIDE LEVEL 26 MEQ/L (21-32); CHLORIDE LEVEL 102 MEQ/L (98-107); CREATININE FOR GFR 0.57 MG/DL (0.55-1.02); GLOMERULAR FILTRATION RATE > 60.0 (>60); GLUCOSE, FASTING 96 MG/DL (70-105); POTASSIUM SERUM 3.7 MEQ/L (3.5-5.1); SODIUM LEVEL 138 MEQ/L (136-145)
[2017-05-28 23:23] VITALS: BP 139/83
--- NOTE | 2017-05-28 23:30 | REPUSA ---
Clinical history: Pain. Findings: Real-time transabdominal ultrasound images of the pelvis were obtained. An anteverted uteru s is noted, measuring 8.2 x 5.3 x 5.7 cm. The uterus demonstrates normal echotexture and echogenicity . The endometrial stripe measures 13 mm and is within normal limits when considering physiologic donohue ges. The right ovary measures 2.6 x 2.4 x 3.0 cm. The left ovary measures 2.8 x 1.6 x 3.3 cm. No adne xal masses are seen. Color Doppler flow is seen within both ovaries. There is no evidence of free flu id. The urinary bladder is unremarkable. Impression: Unremarkable ultrasound examination of the pelvis.
== END 2017-05-28 23:24 | disposition home or self-care (01) ==
LOC: M ED 20:33
DX: N94.6 Dysmenorrhea, unspecified (principal); Z87.891 Personal history of nicotine dependence

== ENCOUNTER → 2017-06-23 | Outpatient (REF) | payer MEDICAID, OTHER | LOC: M LAB REF 11:57 | PROVIDERS: ATTEND Nurse Practitioner Family | DX: R19.7 Diarrhea, unspecified (principal) ==

== ENCOUNTER → 2017-09-08 | Outpatient (CLI) | payer OTHER, MEDICAID | LOC: M SMT 13:25 | PROVIDERS: ATTEND Obstetrics & Gynecology | DX: Z11.3 Encounter for screening for infections with a predominantly sexual mode of transmission (principal) ==

== ENCOUNTER → 2017-09-08 | Outpatient (REF) | payer OTHER, MEDICAID | LOC: M LAB REF 16:52 | PROVIDERS: ATTEND Obstetrics & Gynecology | DX: Z11.3 Encounter for screening for infections with a predominantly sexual mode of transmission (principal) ==

== ENCOUNTER → 2017-10-10 | Outpatient (REF) | payer OTHER, MEDICAID | LOC: M OUTALCOH 09:56 | PROVIDERS: ATTEND Psychiatry & Neurology Psychiatry | DX: F12.10 Cannabis abuse, uncomplicated (principal) ==

== ENCOUNTER 2017-10-21 21:58 | Emergency (ER) | payer OTHER, MEDICAID ==
[~2017-10-21] VITALS: Ht 157.5 cm; Wt 102.0 kg
[2017-10-21 21:59] VITALS: BP 123/83
[2017-10-21] MEDS ORDERED: RISP1TAB42 PO (22:21)
[2017-10-21] MEDS ORDERED: BREO1INH3 INH (22:21)
[2017-10-21] MEDS ORDERED: EFFE75CA75 PO (22:21)
[2017-10-21] MEDS ORDERED: INVE234I INJ (22:21)
--- NOTE | 2017-10-22 08:22 | REP ---
Clinical: Trauma. Technique: AP, lateral, bilateral oblique views right foot Findings: The osseous structures and joint spaces are intact and normal. There is no evidence for acute fracture or dislocation. Surrounding soft tissues are unremarkable. No subcutaneous emphysema or radiodense foreign body. Impression: No acute fracture or dislocation. Signed by Isaac Restrepo MD 10/22/2017 08:13 A
--- NOTE | 2017-10-22 08:22 | REP ---
Clinical: Trauma. Fall . Technique: AP, lateral, bilateral oblique views right ankle . Findings: Swelling over the lateral malleolus consistent with inversion injury. No acute fracture or dislocation. Skeletal structures and joint spaces are intact and normal. Ankle mortise appears stable. No subcutaneous emphysema or radiodense foreign body. Impression: Lateral swelling. No acute fracture or dislocation. Signed by Isaac Restrepo MD 10/22/2017 08:13 A
== END 2017-10-21 23:24 | disposition home or self-care (01) ==
LOC: M ED 21:58
DX: S93.401A Sprain of unspecified ligament of right ankle, initial encounter (principal); X50.9XXA Other and unspecified overexertion or strenuous movements or postures, initial encounter; Y92.018 Other place in single-family (private) house as the place of occurrence of the external cause; Y93.89 Activity, other specified; Y99.8 Other external cause status; F41.9 Anxiety disorder, unspecified; F31.9 Bipolar disorder, unspecified; F43.10 Post-traumatic stress disorder, unspecified; Z79.899 Other long term (current) drug therapy; Z79.51 Long term (current) use of inhaled steroids; Z88.0 Allergy status to penicillin; Z88.8 Allergy status to other drugs, medicaments and biological substances

== ENCOUNTER → 2017-11-08 | Outpatient (CLI) | payer OTHER ==
[2017-11-08 18:56] LABS: BASO # 0.1 10^3/uL (0.0-0.2); BASO % 0.5 % (0.0-1.0); EOS # 0.1 10^3/uL (0.0-0.50); EOS % 1.2 % (0.0-3.0); HEMATOCRIT 39.5 % (36.0-47.0); HEMOGLOBIN 13.5 g/dl (12.0-16.0); IMMATURE GRANULOCYTE % 0.4 % (0-0); LYMPH # 3.5 10^3/uL (1.5-6.5); LYMPH % 36.1 % (24.0-44.0); MEAN CORPUSCULAR HEMOGLOBIN 31.4 pg (27.0-33.0); MEAN CORPUSCULAR HGB CONC 34.2 g/dl (32.0-36.5); MEAN CORPUSCULAR VOLUME 91.9 fl (80.0-96.0); MONO # 0.5 10^3/uL (0.0-0.8); MONO % 5.5 % (0.0-5.0); NEUTROPHILS # 5.4 10^3/uL (1.8-7.7); NEUTROPHILS % 56.3 % (36.0-66.0); PLATELET COUNT, AUTOMATED 351 10^3/uL (150-450); RED CELL DISTRIBUTION WIDTH 12.2 % (11.5-14.5); WHITE BLOOD COUNT 9.6 10^3/uL (4.0-10.0)
[2017-11-08 19:01] LABS: FREE T4 0.99 NG/DL (0.76-1.46)
[2017-11-10 16:33] LABS: CHLAMYDIA DNA AMPLIFICATION NEGATIVE (NEGATIVE); GC DNA AMPLIFICATION NEGATIVE (NEGATIVE)
== END ==
LOC: M SMT 13:40
DX: N92.5 Other specified irregular menstruation (principal)
CPT/HCPCS: 84443

== ENCOUNTER → 2017-11-09 | Outpatient (CLI) | payer OTHER | LOC: M RAD 12:17 | DX: N92.6 Irregular menstruation, unspecified (principal) | CPT/HCPCS: 76856 ==

== ENCOUNTER 2018-05-08 06:02 | Day surgery (SDC) | payer OTHER ==
[2018-05-08] MEDS ORDERED: LR 1,000 ML IV (06:15)
[2018-05-08] MEDS ORDERED: KETOROLAC 60 MG/2 ML VIAL (J1885) As Ordered (06:23)
[2018-05-08] MEDS ORDERED: LIDOCAINE 2% INJ 100 MG/5 ML SDV (FOR ANES.) As Ordered (06:23)
[2018-05-08] MEDS ORDERED: dexameTHASONE 4 MG/ML 1ML VIAL (J1100) As Ordered (06:23)
[2018-05-08] MEDS ORDERED: ROCURONIUM BROMIDE 50 MG/5 ML VIAL As Ordered (06:23)
[2018-05-08] MEDS ORDERED: PROPOFOL 200 MG/20 ML VIAL As Ordered (06:23)
[2018-05-08] MEDS ORDERED: ONDANSETRON 4MG/2ML VIAL (J2405) As Ordered (06:23)
[2018-05-08] MEDS ORDERED: fentaNYL 250 MCG/5 ML INJECTION (J3010) As Ordered (06:32)
[2018-05-08] MEDS ORDERED: MIDAZOLAM INJ 2 MG/2 ML VIAL (J2250) As Ordered (06:32)
[2018-05-08 06:36] LABS: HEMATOCRIT 38.8 % (36.0-47.0); HEMOGLOBIN 13.6 g/dl (12.0-15.5); MEAN CORPUSCULAR HEMOGLOBIN 31.9 pg (27.0-33.0); MEAN CORPUSCULAR HGB CONC 35.1 g/dl (32.0-36.5); MEAN CORPUSCULAR VOLUME 91.1 fl (80.0-96.0); PLATELET COUNT, AUTOMATED 317 10^3/uL (150-450); RED BLOOD COUNT 4.26 10^6/uL (4.00-5.40); RED CELL DISTRIBUTION WIDTH 12.3 % (11.5-14.5)
[2018-05-08 06:54] LABS: CONTROL LINE HCG INT CTR LINE PRESENT; HCG, SERUM QUALITATIVE NEGATIVE (NEGATIVE)
[2018-05-08] MEDS ORDERED: CIPROFLOXACIN/D5W 400 MG/200 ML BAG (J0744) As Ordered (07:27)
[2018-05-08] MEDS ORDERED: CLINDAMYCIN 900 MG/50 ML PREMIX BAG As Ordered (07:31)
[2018-05-08] MEDS: CLINDAMYCIN 900 MG in APPROPRIATE DILUENT 1 EA IV (07:35)
[2018-05-08] MEDS: AZTREONAM 2 GM in D5W MINI-BAG PLUS 50 ML IV (08:00)
[2018-05-08] MEDS ORDERED: GLYCOPYRROLATE INJ 0.2 MG/ML 2 ML VIAL As Ordered (08:51)
[2018-05-08] MEDS ORDERED: fentaNYL 100 MCG/2 ML INJECTION (J3010) As Ordered (09:37)
[2018-05-08] MEDS ORDERED: SUGAMMADEX SODIUM 500 MG/5 ML VIAL (BRIDION) As Ordered (09:45)
[2018-05-08] MEDS: BUPIVACAINE HCL 0.25% 30 ML VIAL As Ordered (10:03)
[2018-05-08] MEDS ORDERED: HYDROMORPHONE HCL 0.5 MG/ 0.5 ML SYRINGE (J1170 PER 1) As Ordered (10:20)
[2018-05-08] MEDS: HYDROMORPHONE HCL 0.5 MG/ 0.5 ML SYRINGE (J1170 PER 1) IV ×2 (10:22→10:28)
[2018-05-08] MEDS ORDERED: PROMETHAZINE INJ 25 MG/ML VIAL (J2550) IV ×2 (11:00→15:15)
[2018-05-08] MEDS ORDERED: PERCOCET 5MG/325MG TAB PO ×2 (11:00)
[2018-05-08] MEDS ORDERED: fentaNYL 100 MCG/2 ML INJECTION (J3010) IV (11:00)
[2018-05-08] MEDS ORDERED: zolPIDEM TARTRATE 10MG TAB PO (11:00)
[2018-05-08] MEDS ORDERED: ONDANSETRON 4MG/2ML VIAL (J2405) IV (11:00)
[2018-05-08] MEDS ORDERED: MORPHINE 4 MG/ML 1ML VIAL/SYRINGE (J2270) IV (11:00)
[2018-05-08] MEDS: PERCOCET 5MG/325MG TAB PO (11:09)
[2018-05-08] MEDS ORDERED: KETOROLAC 30 MG/ML VIAL (J1885) IV (12:30)
[2018-05-08] MEDS: LR 1,000 ML IV ×2 (13:30)
[2018-05-08] MEDS ORDERED: ALBUTEROL 90 MCG/ACT 8GM HFA INHALER INH (15:15)
[2018-05-08] MEDS: KETOROLAC 30 MG/ML VIAL (J1885) IV (16:35)
== END 2018-05-08 20:10 | disposition home or self-care (01) ==
LOC: M SDC 06:02 → M PED 13:31
DX: N92.5 Other specified irregular menstruation (principal); N72 Inflammatory disease of cervix uteri; F31.9 Bipolar disorder, unspecified; F32.9 Major depressive disorder, single episode, unspecified; Z79.899 Other long term (current) drug therapy
CPT/HCPCS: 58571

== ENCOUNTER → 2018-12-12 | Outpatient (CLI) | payer OTHER, MEDICAID ==
[~2018-12-12] MED LIST changes: +ABIL400I IM; -ACET50TA PO; -ALBU17IN; +BREO1INH3 INH; +EFFE75CA2 PO; +INVE234I INJ; +MAPA500T2 PO; -OMEP40CA2; +OMEP40CA2 PO; +PERC5TAB12 PO; +RISP1TAB42 PO; +ZYRT10CA5 PO; -ZYRT10TA2 PO
[2018-12-12 10:35] LABS: ALBUMIN 3.7 GM/DL (3.2-5.2); BILIRUBIN,DIRECT 0.1 MG/DL (0.0-0.2); BILIRUBIN,TOTAL 0.4 MG/DL (0.2-1.0); CHOLESTEROL RISK RATIO 3.521 (<5); TOTAL PROTEIN 7.1 GM/DL (6.4-8.2); VALPROIC ACID (DEPAKOTE) 4.1 UG/ML (50.0-100.0)
== END ==
LOC: M LAB 09:14
PROVIDERS: ATTEND Psychiatry & Neurology Psychiatry
DX: Z91.19 Patient's noncompliance with other medical treatment and regimen (principal)

== ENCOUNTER 2019-04-28 20:02 | Emergency (ER) | payer MEDICAID, OTHER ==
[~2019-04-28] VITALS: Ht 157.5 cm; Wt 100.0 kg
[~2019-04-28 20:02] MED LIST changes: -/LAMO20TA; +LAMI1TAB9
[2019-04-28] MEDS ORDERED: KETOROLAC 30 MG/ML VIAL (J1885) IV ONE (21:15)
[2019-04-28] MEDS ORDERED: NS 1,000 ML IV ONE (21:15)
[2019-04-28] MEDS ORDERED: dexameTHASONE 20 MG/5 ML VIAL (J1100) IV ONE (21:15)
[2019-04-28 21:38] LABS: BASO % 0.4 % (0.0-1.0); EOS # 0.1 10^3/uL (0.0-0.50); EOS % 0.6 % (0.0-3.0); HEMOGLOBIN 13.3 g/dl (12.0-15.5); LYMPH # 3.4 10^3/uL (1.5-4.5); LYMPH % 31.5 % (24.0-44.0); MEAN CORPUSCULAR HEMOGLOBIN 32.9 pg (27.0-33.0); MEAN CORPUSCULAR VOLUME 94.1 fl (80.0-96.0); MONO # 0.5 10^3/uL (0.0-0.8); MONO % 4.8 % (0.0-5.0); NEUTROPHILS # 6.7 10^3/uL (1.8-7.7); NEUTROPHILS % 62.3 % (36.0-66.0); PLATELET COUNT, AUTOMATED 320 10^3/uL (150-450); RED BLOOD COUNT 4.04 10^6/uL (4.00-5.40); WHITE BLOOD COUNT 10.7 10^3/uL (4.0-10.0)
[2019-04-28 21:50] LABS: PROTHROMBIN TIME 12.9 SECONDS (11.8-14.0)
[2019-04-28 21:51] LABS: PARTIAL THROMBOPLASTIN TIME 27.5 SECONDS (25.0-38.4)
[2019-04-28 22:03] LABS: BLOOD UREA NITROGEN 10 MG/DL (7-18); CALCIUM LEVEL 8.9 MG/DL (8.5-10.1); CARBON DIOXIDE LEVEL 29 MEQ/L (21-32); CHLORIDE LEVEL 107 MEQ/L (98-107); CK-MB VALUE MASS < 1.0 NG/ML (<3.6); CPK CREATINE PHOSPHOKINASE 55 U/L (26-192); CREATININE FOR GFR 0.74 MG/DL (0.55-1.30); GLOMERULAR FILTRATION RATE > 60.0 (>60); GLUCOSE, FASTING 92 MG/DL (70-100); MB/CK RELATIVE INDEX 1.82 (< OR =4); POTASSIUM SERUM 4.1 MEQ/L (3.5-5.1); SODIUM LEVEL 141 MEQ/L (136-145); TROPONIN I < 0.02 NG/ML (< 0.10)
[2019-04-28] MEDS ORDERED: ISOVUE-370 76% 100ML VIAL (Q9967) As Ordered ONE (22:10)
--- NOTE | 2019-04-28 22:44 | REPVR ---
EXAM: CT Angiography Chest With Contrast EXAM DATE/TIME: 04/28/2019 10:34 PM CLINICAL HISTORY: 33 years old, female; Chest pain; Type not specified; Additional info: Cp TECHNIQUE: Imaging protocol: Axial computed tomographic angiography images of the chest with intravenous contrast using CT angiography protocol. Coronal and sagittal reformatted images were created and reviewed. 3D rendering: MIP reconstructed images were created and reviewed. Radiation optimization: All CT scans at this facility use at least one of these dose optimization techniques: automated exposure control; mA and/or kV adjustment per patient size (includes targeted exams where dose is matched to clinical indication); or iterative reconstruction. Contrast material: ISOVUE 370; Contrast volume: 75 ml; Contrast route: IV; COMPARISON: CR Chest, 2 view PA, Lat 10/18/2016 6:55 PM FINDINGS: Pulmonary arteries: The main pulmonary artery measures 24 mm. No pulmonary embolism is identified. Aorta: The ascending thoracic aorta measures 38 mm. Lungs: Minimal bilateral dependent atelectasis. Pleural space: Unremarkable. No pneumothorax. No pleural effusion. Heart: Unremarkable. No cardiomegaly. No pericardial effusion. Gallbladder and bile ducts: The gallbladder is contracted with no stones. Lymph nodes: Unremarkable. No enlarged lymph nodes. Bones/joints: Unremarkable. No acute fracture. Soft tissues: Unremarkable. IMPRESSION: Negative CTA chest. No pulmonary embolism is identified. Electronically signed by: Mg Gomez On 04/28/2019 22:43:53 PM
[2019-04-28] MEDS ORDERED: PRED20TA PO (23:01)
[2019-04-28] MEDS ORDERED: KETO10TAB PO (23:01)
[2019-04-28 23:31] VITALS: BP 111/61
--- NOTE | 2019-04-29 07:07 | ECGEPIP ---
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
== END 2019-04-28 23:38 | disposition home or self-care (01) ==
LOC: M ED 20:02
DX: R07.1 Chest pain on breathing (principal); F31.9 Bipolar disorder, unspecified; Z88.0 Allergy status to penicillin; Z88.3 Allergy status to other anti-infective agents; Z79.899 Other long term (current) drug therapy; Z79.51 Long term (current) use of inhaled steroids
CPT/HCPCS: 36415; 71275; 80048; 82550; 82553; 85025; 85610; 85730; 93005; 96374; 96375; 99285; J1100; J1885; Q9967

== ENCOUNTER → 2019-06-22 | Outpatient (REF) | payer OTHER, MEDICAID ==
[~2019-06-22] MED LIST changes: +KETO10TAB PO; +PRED20TA PO
[2019-06-22 17:49] LABS: HIV 1&2 SCREEN CENTAUR NEGATIVE (NEGATIVE)
[2019-06-22 18:43] LABS: CHLAMYDIA DNA AMPLIFICATION NEGATIVE (NEGATIVE); GC DNA AMPLIFICATION NEGATIVE (NEGATIVE)
== END ==
LOC: M LAB REF 16:26
PROVIDERS: ATTEND Nurse Practitioner Family
DX: Z20.2 Contact with and (suspected) exposure to infections with a predominantly sexual mode of transmission (principal)

== ENCOUNTER 2019-07-02 19:53 | Emergency (ER) | payer MEDICAID, OTHER, SELFPAY ==
[~2019-07-02] VITALS: Ht 157.5 cm; Wt 101.8 kg
[2019-07-02] MEDS ORDERED: diphenhydrAMINE INJ 50MG/ML VIAL (J1200) IV ONE (21:00)
[2019-07-02] MEDS ORDERED: KETOROLAC 30 MG/ML VIAL (J1885) IV ONE (21:00)
[2019-07-02] MEDS ORDERED: NS 1,000 ML IV ONE (21:00)
[2019-07-02] MEDS ORDERED: METOCLOPRAMIDE INJ 10MG/2ML VIAL (J2765) IV ONE (21:00)
[2019-07-02 23:42] VITALS: BP 110/62
== END 2019-07-02 23:49 | disposition home or self-care (01) ==
LOC: M ED 19:53
DX: G97.1 Other reaction to spinal and lumbar puncture (principal); Z79.899 Other long term (current) drug therapy; Z88.0 Allergy status to penicillin; Z88.8 Allergy status to other drugs, medicaments and biological substances; F17.210 Nicotine dependence, cigarettes, uncomplicated
CPT/HCPCS: 96361; 96374; 96375; 99284; J1200; J1885; J2765

== ENCOUNTER → 2019-09-04 | Outpatient (REF) | payer MEDICAID ==
[~2019-09-04] MED LIST changes: -OMEP40CA2 PO; +OMEP40CA97 PO
[2019-09-07 00:06] LABS: BORDETELLA PERTUSSIS ABY IgA <1.0 index (0.0-0.9); BORDETELLA PERTUSSIS ABY IgG 3.27 index (0.00-0.94); BORDETELLA PERTUSSIS ABY IgM <1.0 index (0.0-0.9)
== END ==
LOC: M LAB REF 16:40
PROVIDERS: ATTEND Internal Medicine
DX: R05 Cough (principal)

== ENCOUNTER → 2019-12-03 | Outpatient (REF) | payer MEDICAID, OTHER ==
[2019-12-03 14:46] LABS: INFLUENZA A AMPLIFICATION NEGATIVE (NEGATIVE); INFLUENZA B AMPLIFICATION NEGATIVE (NEGATIVE)
== END ==
LOC: M LAB REF 14:00
PROVIDERS: ATTEND Physician Assistant Medical
DX: R50.9 Fever, unspecified (principal)

== ENCOUNTER → 2019-12-05 | Outpatient (REF) | payer MEDICAID, OTHER ==
[2019-12-07 08:06] LABS: RUBEOLA IgG ANTIBODY >300.0 AU/mL (Immune >16.4)
[2019-12-07 13:38] LABS: RUBELLA IgG QUALITATIVE IMMUNE (IMMUNE)
== END ==
LOC: M LAB REF 17:11
PROVIDERS: ATTEND Internal Medicine
DX: Z02.0 Encounter for examination for admission to educational institution (principal)

== ENCOUNTER 2020-03-16 11:35 | Emergency (ER) | payer MEDICAID, OTHER ==
[~2020-03-16] VITALS: Ht 157.5 cm; Wt 97.2 kg
[2020-03-16] MEDS ORDERED: ONDANSETRON 4MG/2ML VIAL As Ordered ONE (12:03)
[2020-03-16 12:05] LABS: BASO # 0.1 10^3/uL (0.0-0.2); BASO % 0.4 % (0.0-1.0); EOS # 0.1 10^3/uL (0.0-0.5); EOS % 0.7 % (0.0-3.0); HEMATOCRIT 41.8 % (36.0-47.0); LYMPH # 3.6 10^3/uL (1.5-5.0); MEAN CORPUSCULAR HEMOGLOBIN 31.7 pg (27.0-33.0); MEAN CORPUSCULAR HGB CONC 33.5 g/dl (32.0-36.5); MEAN CORPUSCULAR VOLUME 94.6 fl (80.0-96.0); MONO # 0.4 10^3/uL (0.0-0.8); MONO % 3.5 % (0.0-5.0); NEUTROPHILS # 7.5 10^3/uL (1.5-8.5); NEUTROPHILS % 64.1 % (36.0-66.0); PLATELET COUNT, AUTOMATED 265 10^3/uL (150-450); RED BLOOD COUNT 4.42 10^6/uL (4.00-5.40); WHITE BLOOD COUNT 11.7 10^3/uL (4.0-10.0)
[2020-03-16] MEDS ORDERED: ONDANSETRON 4MG/2ML VIAL IV ONE (12:15)
[2020-03-16] MEDS ORDERED: NS 1,000 ML IV ONE (12:15)
[2020-03-16 12:32] LABS: AMPHETAMINES LEVEL URINE POSITIVE (NEGATIVE); BARBITURATES URINE NEGATIVE (NEGATIVE); BENZODIAZEPINES URINE NEGATIVE (NEGATIVE); CANNABINOIDS URINE NEGATIVE (NEGATIVE); COCAINE METABOLITE URINE POSITIVE (NEGATIVE); METHADONE URINE NEGATIVE (NEGATIVE); OPIATES URINE NEGATIVE (NEGATIVE); PHENCYCLIDINE URINE NEGATIVE (NEGATIVE)
[2020-03-16 12:37] LABS: ACETAMINOPHEN LEVEL < 2.0 UG/ML (10.0-30.0); ALBUMIN 3.4 GM/DL (3.2-5.2); ALT/SGPT 16 U/L (12-78); BILIRUBIN,DIRECT 0.1 MG/DL (0.0-0.2); BILIRUBIN,TOTAL 0.3 MG/DL (0.2-1.0); CK-MB VALUE MASS < 1.0 NG/ML (<3.6); CPK CREATINE PHOSPHOKINASE 41 U/L (26-192); ETHYL ALCOHOL (ETHANOL) < 0.003 % (0.000-0.010); MB/CK RELATIVE INDEX 2.44 (< OR =4); SALICYLATE LEVEL 2.1 MG/DL (5.0-30.0); TROPONIN I < 0.02 NG/ML (< 0.10)
--- NOTE | 2020-03-16 12:45 | REP ---
Clinical: Drug overdose . Comparison: 10/18/2016 . Findings: The mediastinum and cardiac silhouette are stable and within normal limits for portable technique. The lung kidd are clear without acute consolidation, effusion, or pneumothorax. Skeletal structures are intact. Impression: No acute cardiopulmonary process appreciated. Electronically Signed by Isaac Restrepo MD 03/16/2020 12:37 P
[2020-03-16] MEDS ORDERED: METOCLOPRAMIDE INJ 10MG/2ML VIAL (J2765 PER 1) IV ONE (13:45)
[2020-03-16 15:36] LABS: CK-MB VALUE MASS < 1.0 NG/ML (<3.6); CPK CREATINE PHOSPHOKINASE 39 U/L (26-192); MB/CK RELATIVE INDEX 2.56 (< OR =4); TROPONIN I < 0.02 NG/ML (< 0.10)
[2020-03-16 17:15] VITALS: BP 113/65
--- NOTE | 2020-03-16 21:08 | ECGEPIP ---
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
--- NOTE | 2020-03-17 00:14 | ECGEPIP ---
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
== END 2020-03-16 17:39 | disposition home or self-care (01) ==
LOC: EDBD 11:35 → M ED 11:35
DX: T50.901A Poisoning by unspecified drugs, medicaments and biological substances, accidental (unintentional), initial encounter (principal); F19.120 Other psychoactive substance abuse with intoxication, uncomplicated; R11.10 Vomiting, unspecified; R07.89 Other chest pain; R06.02 Shortness of breath; F32.9 Major depressive disorder, single episode, unspecified; F43.10 Post-traumatic stress disorder, unspecified; F17.200 Nicotine dependence, unspecified, uncomplicated; Z88.0 Allergy status to penicillin; Z88.1 Allergy status to other antibiotic agents; Z79.899 Other long term (current) drug therapy; Z79.51 Long term (current) use of inhaled steroids
CPT/HCPCS: 36415; 71045; 80047; 80076; 80307; 82550; 82553; 83605; 84443; 85025; 93005; 93041; 94760; 96361; 96374; 96375; 99285; G0480; J2405; J2765

== ENCOUNTER 2020-03-26 15:51 | Outpatient (RCR) | payer MEDICAID | END 2020-03-30 | LOC: M OUTALCOH 15:51 | PROVIDERS: ATTEND Psychiatry & Neurology Addiction Medicine | DX: F14.20 Cocaine dependence, uncomplicated (principal); F17.200 Nicotine dependence, unspecified, uncomplicated ==

== ENCOUNTER → 2020-04-21 | Outpatient (REF) | payer MEDICAID | LOC: M LAB REF 11:05 | PROVIDERS: ATTEND Internal Medicine | DX: Z72.51 High risk heterosexual behavior (principal) ==

== ENCOUNTER → 2020-04-24 | Outpatient (REF) | payer MEDICAID ==
[2020-04-24 20:42] LABS: CHLAMYDIA DNA AMPLIFICATION NEGATIVE (NEGATIVE); GC DNA AMPLIFICATION NEGATIVE (NEGATIVE)
== END ==
LOC: M LAB REF 16:24
PROVIDERS: ATTEND Internal Medicine
DX: Z72.51 High risk heterosexual behavior (principal)

== ENCOUNTER 2020-04-25 13:00 | Outpatient (RCR) | payer MEDICAID | END 2020-04-29 | LOC: M OUTALCOH 13:00 | PROVIDERS: ATTEND Psychiatry & Neurology Addiction Medicine | DX: F14.20 Cocaine dependence, uncomplicated (principal); F17.200 Nicotine dependence, unspecified, uncomplicated ==

== ENCOUNTER → 2020-05-30 | Outpatient (RCR) | payer MEDICAID | LOC: M OUTALCOH 04-30 11:37 | PROVIDERS: ATTEND Psychiatry & Neurology Addiction Medicine | DX: F14.20 Cocaine dependence, uncomplicated (principal); F17.200 Nicotine dependence, unspecified, uncomplicated ==

== ENCOUNTER 2020-06-27 11:00 | Outpatient (RCR) | payer MEDICAID | END 2020-06-30 | LOC: M OUTALCOH 11:00 | PROVIDERS: ATTEND Psychiatry & Neurology Addiction Medicine | DX: F14.20 Cocaine dependence, uncomplicated (principal); F17.200 Nicotine dependence, unspecified, uncomplicated ==

== ENCOUNTER 2020-07-15 10:00 | Outpatient (RCR) | payer MEDICAID | END 2020-07-30 | LOC: M OUTALCOH 10:00 | PROVIDERS: ATTEND Psychiatry & Neurology Addiction Medicine | DX: F14.20 Cocaine dependence, uncomplicated (principal); F17.200 Nicotine dependence, unspecified, uncomplicated ==

== ENCOUNTER 2023-10-15 00:47 | Emergency (ER) | payer MEDICAID, OTHER ==
[~2023-10-15] VITALS: Ht 160 cm; Wt 101.0 kg
[~2023-10-15 00:47] MED LIST changes: -AMIT25TA; +AMIT25TA19; +OMEP40CA4 PO; -OMEP40CA97 PO
[2023-10-15 00:49] VITALS: BP 119/61; TEMP 98.6; O2SAT 96
== END 2023-10-15 05:45 | disposition home or self-care (01) ==
LOC: M ED 00:47
DX: S00.83XA Contusion of other part of head, initial encounter (principal); Y92.9 Unspecified place or not applicable; Y93.9 Activity, unspecified; Y99.8 Other external cause status; X58.XXXA Exposure to other specified factors, initial encounter; Z88.0 Allergy status to penicillin; Z88.1 Allergy status to other antibiotic agents; Z88.8 Allergy status to other drugs, medicaments and biological substances; Z79.899 Other long term (current) drug therapy; Z79.51 Long term (current) use of inhaled steroids

== ENCOUNTER → 2023-12-02 | Outpatient (REF) | payer BC | LOC: M LAB REF 16:17 | PROVIDERS: ATTEND Internal Medicine | DX: E66.01 Morbid (severe) obesity due to excess calories (principal) ==

== ENCOUNTER → 2023-12-26 | Outpatient (CLI) | payer MEDICAID | LOC: M WHC 13:46 | PROVIDERS: ATTEND Internal Medicine | DX: Z80.3 Family history of malignant neoplasm of breast (principal); Z15.01 Genetic susceptibility to malignant neoplasm of breast ==

== ENCOUNTER 2024-02-17 14:58 | Emergency (ER) | payer MEDICAID, OTHER ==
[~2024-02-17] VITALS: Ht 160 cm; Wt 101.8 kg
[~2024-02-17 14:58] MED LIST changes: -CYCL-707 PO; -LIDO5DIS41 TD; -MEDR4PAK PO
[2024-02-17] MEDS: KETOROLAC 30 MG/ML 1ML VIAL IV ONE (16:03)
[2024-02-17] MEDS: ACETAMINOPHEN 500 MG TAB PO ONE (16:04)
[2024-02-17] MEDS: diazePAM 10MG/2ML SYRINGE IV ONE (16:04)
[2024-02-17] MEDS: LIDOCAINE 5% (LIDODERM) PATCH TD ONE ×2 (16:04→22:01)
[2024-02-17] MEDS: methylPREDNISolone 125MG 2ML VIAL IM ONE (19:59)
[2024-02-17] MEDS: oxyCODONE 5MG TAB PO ONE (20:00)
[2024-02-17] MEDS ORDERED: LIDO5DIS41 TD (21:44)
[2024-02-17] MEDS ORDERED: MEDR4PAK PO (21:44)
[2024-02-17] MEDS ORDERED: CYCL-707 PO (21:44)
[2024-02-17 21:45] VITALS: BP 105/62; TEMP 98; O2SAT 96
== END 2024-02-17 22:06 | disposition home or self-care (01) ==
LOC: M ED 14:58 → EDBD 14:58 → M ED 22:06
DX: M51.37 Other intervertebral disc degeneration, lumbosacral region (principal); M43.07 Spondylolysis, lumbosacral region; F60.3 Borderline personality disorder; F31.9 Bipolar disorder, unspecified; Z88.0 Allergy status to penicillin; Z88.1 Allergy status to other antibiotic agents; Z79.899 Other long term (current) drug therapy
CPT/HCPCS: 72148; 96372; 96374; 96375; 99285; J1885; J2919; J3360

== ENCOUNTER → 2024-02-17 | Outpatient (REF) | payer OTHER ==
[~2024-02-17] MED LIST changes: +CYCL-707 PO; +LIDO5DIS41 TD; +MEDR4PAK PO
== END ==
LOC: M LAB REF 16:16
PROVIDERS: ATTEND Internal Medicine
DX: N39.0 Urinary tract infection, site not specified (principal)

== ENCOUNTER → 2024-08-06 | Outpatient (CLI) | payer OTHER ==
[~2024-08-06] MED LIST changes: +AMPH1CAP14; +ARNU1INH; +BUPR-69; +CETI-24; +CYCL-707 PO; +DOXY100C3; +HYDR50TA70; +LIDO5DIS41 TD; +LURA40TA2; +MEDR4PAK PO; +PRED10TA2; +TOPI-21
[2024-08-06 18:18] LABS: RSV AMPLIFICATION NEGATIVE (NEGATIVE)
== END ==
LOC: M WUC 13:54
PROVIDERS: ATTEND Nurse Practitioner Family
DX: R05.1 Acute cough (principal); R06.02 Shortness of breath; R06.2 Wheezing

== ENCOUNTER 2024-08-07 17:39 | Emergency (ER) | payer OTHER ==
[~2024-08-07] VITALS: Ht 160 cm; Wt 105.4 kg
[~2024-08-07 17:39] MED LIST changes: -AMPH1CAP14; -ARNU1INH; -BUPR-69; -CETI-24; -DOXY100C3; -HYDR50TA70; -LURA40TA2; -PRED10TA2; -TOPI-21
[2024-08-07 17:45] VITALS: BP 116/64; TEMP 97.2; O2SAT 98
[2024-08-07] MEDS ORDERED: LURA40TA2 (17:48)
[2024-08-07] MEDS ORDERED: DOXY100C3 (17:48)
[2024-08-07] MEDS ORDERED: AMPH1CAP14 (17:48)
[2024-08-07] MEDS ORDERED: PRED10TA2 (17:48)
[2024-08-07] MEDS ORDERED: TOPI-21 (17:48)
[2024-08-07] MEDS ORDERED: ARNU1INH (17:48)
[2024-08-07] MEDS ORDERED: CETI-24 (17:48)
[2024-08-07] MEDS ORDERED: HYDR50TA70 (17:48)
[2024-08-07] MEDS ORDERED: BUPR-69 (17:48)
[2024-08-07 20:18] LABS: BASO # 0.1 10^3/uL (0.0-0.2); BASO % 0.3 % (0.0-1.0); EOS # 0.1 10^3/uL (0.0-0.5); EOS % 0.4 % (0.0-3.0); HEMATOCRIT 41.1 % (36.0-47.0); HEMOGLOBIN 14.6 g/dl (12.0-15.5); LYMPH # 5.5 10^3/uL (1.5-5.0); LYMPH % 24.4 % (24.0-44.0); MEAN CORPUSCULAR HEMOGLOBIN 32.9 pg (27.0-33.0); MEAN CORPUSCULAR HGB CONC 35.5 g/dl (32.0-36.5); MEAN CORPUSCULAR VOLUME 92.6 fl (80.0-96.0); MONO % 4.5 % (2.0-8.0); NEUTROPHILS # 15.6 10^3/uL (1.5-8.5); NEUTROPHILS % 69.6 % (36.0-66.0); PLATELET COUNT, AUTOMATED 371 10^3/uL (150-450); RED BLOOD COUNT 4.44 10^6/uL (4.00-5.40); WHITE BLOOD COUNT 22.5 10^3/uL (4.0-10.0)
[2024-08-07] MEDS ORDERED: ISOVUE-370 76% 100ML VIAL As Ordered ONE (20:29)
== END 2024-08-07 22:39 | disposition home or self-care (01) ==
LOC: M ED 17:39
DX: J06.9 Acute upper respiratory infection, unspecified (principal); J45.909 Unspecified asthma, uncomplicated; J44.9 Chronic obstructive pulmonary disease, unspecified; F31.9 Bipolar disorder, unspecified; F43.10 Post-traumatic stress disorder, unspecified; F17.200 Nicotine dependence, unspecified, uncomplicated; Z88.0 Allergy status to penicillin; Z88.1 Allergy status to other antibiotic agents; Z88.8 Allergy status to other drugs, medicaments and biological substances; Z79.52 Long term (current) use of systemic steroids; Z79.899 Other long term (current) drug therapy
CPT/HCPCS: 36415; 71275; 80047; 85025; 87486; 87581; 87633; 87798; 99284; Q9967

== ENCOUNTER → 2024-09-25 | Outpatient (REF) | payer OTHER ==
[~2024-09-25] MED LIST changes: +AMPH1CAP14; +ARNU1INH; +BUPR-69; +CETI-24; +DOXY100C3; +HYDR50TA70; +LURA40TA2; +PRED10TA2; +TOPI-21
== END ==
LOC: M LAB REF 16:22
PROVIDERS: ATTEND Internal Medicine
DX: N39.0 Urinary tract infection, site not specified (principal)

== ENCOUNTER → 2024-10-10 | Outpatient (REF) | payer OTHER ==
[2024-10-12 14:32] LABS: RUBEOLA IgG ANTIBODY > 300.00 AU/mL (>16.49)
== END ==
LOC: M LAB REF 16:08
PROVIDERS: ATTEND Internal Medicine
DX: Z02.0 Encounter for examination for admission to educational institution (principal)

== ENCOUNTER → 2024-11-08 | Outpatient (REF) | payer OTHER | LOC: M LAB REF 12:42 | PROVIDERS: ATTEND Internal Medicine | DX: R20.2 Paresthesia of skin (principal) ==

== ENCOUNTER → 2024-11-13 | Outpatient (CLI) | payer OTHER ==
[2024-11-13 12:59] LABS: HEMATOCRIT 41.3 % (36.0-47.0); HEMOGLOBIN 14.4 g/dl (12.0-15.5); MEAN CORPUSCULAR HEMOGLOBIN 33.3 pg (27.0-33.0); MEAN CORPUSCULAR HGB CONC 34.9 g/dl (32.0-36.5); MEAN CORPUSCULAR VOLUME 95.4 fl (80.0-96.0); PLATELET COUNT, AUTOMATED 332 10^3/uL (150-450); RED BLOOD COUNT 4.33 10^6/uL (4.00-5.40); WHITE BLOOD COUNT 12.7 10^3/uL (4.0-10.0)
[2024-11-13 13:21] LABS: ALKALINE PHOSPHATASE 80 U/L (35-104); ALT/SGPT 15 U/L (7.0-40); AST/SGOT 11 U/L (<34); BILIRUBIN,TOTAL 0.2 MG/DL (0.3-1.2); BLOOD UREA NITROGEN 17 MG/DL (9-23); CARBON DIOXIDE LEVEL 22 MMOL/L (20-31); CHLORIDE LEVEL 110 MMOL/L (98-107); CHOLESTEROL LEVEL 133 MG/DL (<200); CHOLESTEROL RISK RATIO 3.46 (<5); CREATININE FOR GFR 0.86 MG/DL (0.55-1.30); GLOMERULAR FILTRATION RATE > 60.0 (>60); GLUCOSE, FASTING 97 MG/DL (60-100); HDL CHOLESTEROL 38.4 MG/DL (>40); LDL CHOLESTEROL 65.2 MG/DL (<100); NON-HDL-C 94.6 MG/DL; POTASSIUM SERUM 4.6 MMOL/L (3.5-5.1); SODIUM LEVEL 141 MMOL/L (136-145); TOTAL PROTEIN 7.3 G/DL (5.7-8.2); TRIGLYCERIDES LEVEL 147 MG/DL (<150)
[2024-11-13 13:24] LABS: LITHIUM LEVEL 0.19 MMOL/L (1.0-1.20); THYROID STIMULATING HORMONE 1.893 uIU/ML (0.55-4.78)
[2024-11-13 13:26] LABS: TOTAL 25(OH) VITAMIN D 21.5 NG/ML (20.0-100.0)
[2024-11-13 13:38] LABS: HEMOGLOBIN A1c 5.1 % (4.0-6.0)
== END ==
LOC: M LAB 12:23
PROVIDERS: ATTEND Nurse Practitioner Psychiatric/Mental Health
DX: F41.1 Generalized anxiety disorder (principal); F39 Unspecified mood [affective] disorder

== ENCOUNTER → 2024-11-16 | Outpatient (CLI) | payer OTHER | LOC: M PLAIMG 10:40 | PROVIDERS: ATTEND Internal Medicine | DX: R20.2 Paresthesia of skin (principal); M47.812 Spondylosis without myelopathy or radiculopathy, cervical region; M47.896 Other spondylosis, lumbar region ==

== ENCOUNTER 2025-09-03 15:58 | Emergency (ER) | payer OTHER ==
[~2025-09-03] VITALS: Ht 160 cm; Wt 92.1 kg
[~2025-09-03 15:58] MED LIST changes: -ABIL400I IM; +ARIP400S IM; +LIDO1ADH93 TD; -LIDO5DIS41 TD; +TOPI-256; +TOPI-257; -TOPI100T9; -TOPI25TA10
[2025-09-03] MEDS: IPRATROPIUM 0.5 MG/ALBUTEROL 2.5 MG INH SOL UD 3 ML NEB ONE (16:28)
[2025-09-03 18:16] VITALS: BP 101/81; TEMP 98.6; O2SAT 98
[2025-09-03] MEDS ORDERED: PRED20TA PO (18:24)
[2025-09-03] MEDS ORDERED: DOXY-441 PO (18:24)
[2025-09-03] MEDS ORDERED: TOPA50TA8 PO (18:24)
[2025-09-03] MEDS ORDERED: VENTAER INH (18:24)
[2025-09-03] MEDS: TOPIRAMATE 25 MG TAB PO ONE (18:37)
[2025-09-03] MEDS: DOXYCYCLINE HYCLATE 100 MG TABLET PO ONE (18:37)
== END 2025-09-03 18:42 | disposition home or self-care (01) ==
LOC: M ED 15:58
DX: J20.9 Acute bronchitis, unspecified (principal); G40.909 Epilepsy, unspecified, not intractable, without status epilepticus; Z76.0 Encounter for issue of repeat prescription; R00.1 Bradycardia, unspecified; F17.200 Nicotine dependence, unspecified, uncomplicated; Z88.0 Allergy status to penicillin; Z88.1 Allergy status to other antibiotic agents; Z88.8 Allergy status to other drugs, medicaments and biological substances; Z79.52 Long term (current) use of systemic steroids; Z79.899 Other long term (current) drug therapy; Z79.2 Long term (current) use of antibiotics

== ENCOUNTER 2025-09-05 18:46 | Emergency (ER) | payer OTHER, SELFPAY ==
[~2025-09-05] VITALS: Ht 160 cm; Wt 88.6 kg
[~2025-09-05 18:46] MED LIST changes: +DOXY-441 PO; +TOPA50TA8 PO; +VENTAER INH
[2025-09-05 19:39] LABS: BASO # 0.0 10^3/uL (0.0-0.2); BASO % 0.4 % (0.0-1.0); EOS # 0.0 10^3/uL (0.0-0.5); EOS % 0.2 % (0.0-3.0); LYMPH # 2.5 10^3/uL (1.5-5.0); LYMPH % 27.4 % (24.0-44.0); MONO # 0.5 10^3/uL (0.0-0.8); MONO % 5.1 % (2.0-8.0); NEUTROPHILS # 6.1 10^3/uL (1.5-8.5); NEUTROPHILS % 66.6 % (36.0-66.0); PLATELET COUNT, AUTOMATED 337 10^3/uL (150-450)
[2025-09-05 20:11] LABS: CK-MB VALUE MASS < 1.0 NG/ML (<3.6)
[2025-09-05 20:12] LABS: CALCIUM LEVEL 9.5 MG/DL (8.5-10.1); CARBON DIOXIDE LEVEL 24 MMOL/L (20-31); CHLORIDE LEVEL 108 MMOL/L (98-107); CREATININE FOR GFR 0.62 MG/DL (0.55-1.30); GLOMERULAR FILTRATION RATE > 90.0 (>60); POTASSIUM SERUM 4.1 MMOL/L (3.5-5.1); SODIUM LEVEL 140 MMOL/L (136-145)
[2025-09-05 20:17] LABS: CPK CREATINE PHOSPHOKINASE 43 U/L (34-145)
[2025-09-05] MEDS ORDERED: ISOVUE-370 76% 100 ML VIAL As Ordered ONE (20:20)
[2025-09-05] MEDS: IPRATROPIUM 0.5 MG/ALBUTEROL 2.5 MG INH SOL UD 3 ML NEB PRN (20:32)
[2025-09-05] MEDS: BENZONATATE 100 MG CAPSULE PO ONE (20:37)
[2025-09-05] MEDS: ACETAMINOPHEN *IV* 1,000 MG in IV 1 EA IV ONE (20:37)
[2025-09-05 21:04] LABS: CK-MB VALUE MASS < 1.0 NG/ML (<3.6)
[2025-09-05 21:08] LABS: CPK CREATINE PHOSPHOKINASE 39 U/L (34-145)
[2025-09-05] MEDS ORDERED: NAPR-837 PO (21:21)
[2025-09-05] MEDS ORDERED: PROA1AER2 INH (21:21)
[2025-09-05 21:34] VITALS: BP 116/65; TEMP 98.2; O2SAT 99
== END 2025-09-05 21:41 | disposition home or self-care (01) ==
LOC: M ED 18:46
DX: R09.1 Pleurisy (principal); R06.02 Shortness of breath; R05.9 Cough, unspecified; G40.909 Epilepsy, unspecified, not intractable, without status epilepticus; K58.9 Irritable bowel syndrome, unspecified; K21.9 Gastro-esophageal reflux disease without esophagitis; F31.9 Bipolar disorder, unspecified; F17.200 Nicotine dependence, unspecified, uncomplicated; Z87.42 Personal history of other diseases of the female genital tract; Z88.0 Allergy status to penicillin; Z88.1 Allergy status to other antibiotic agents; Z79.899 Other long term (current) drug therapy; Z79.52 Long term (current) use of systemic steroids; Z79.1 Long term (current) use of non-steroidal anti-inflammatories (NSAID)
CPT/HCPCS: 71045; 71275; 74177; 80048; 82550; 82553; 83605; 84484; 85025; 87486; 87581; 87633; 87798; 93005; 93041; 94640; 94760; 96365; 99285; J0134; Q9967

== ENCOUNTER → 2025-09-11 | Outpatient (REF) | payer OTHER ==
[~2025-09-11] MED LIST changes: +NAPR-837 PO; +PROA1AER2 INH
[2025-09-11 14:54] LABS: GC DNA AMPLIFICATION NEGATIVE (NEGATIVE)
== END ==
LOC: M LAB REF 12:34
PROVIDERS: ATTEND Internal Medicine
DX: B37.31 Acute candidiasis of vulva and vagina (principal); N76.0 Acute vaginitis

== ENCOUNTER 2025-09-15 12:15 | Emergency (ER) | payer OTHER ==
[~2025-09-15] VITALS: Ht 160 cm; Wt 93.3 kg
[2025-09-15 12:54] LABS: BASO # 0.0 10^3/uL (0.0-0.2); BASO % 0.3 % (0.0-1.0); EOS # 0.1 10^3/uL (0.0-0.5); EOS % 0.6 % (0.0-3.0); LYMPH # 3.5 10^3/uL (1.5-5.0); LYMPH % 30.2 % (24.0-44.0); MONO # 0.4 10^3/uL (0.0-0.8); MONO % 3.8 % (2.0-8.0); NEUTROPHILS # 7.4 10^3/uL (1.5-8.5); NEUTROPHILS % 64.7 % (36.0-66.0); PLATELET COUNT, AUTOMATED 304 10^3/uL (150-450)
[2025-09-15 13:20] LABS: INR 0.88
[2025-09-15 13:29] LABS: C REACTIVE PROTEIN QUANTITATIV 0.55 MG/DL (<1.0)
[2025-09-15 13:38] LABS: HCG, SERUM QUALITATIVE NEGATIVE (NEGATIVE)
[2025-09-15 13:52] LABS: FREE T4 1.24 NG/DL (0.89-1.76)
[2025-09-15 14:06] LABS: ALT/SGPT 12 U/L (7.0-40); AST/SGOT 20 U/L (<34); CALCIUM LEVEL 8.9 MG/DL (8.5-10.1); CARBON DIOXIDE LEVEL 24 MMOL/L (20-31); CHLORIDE LEVEL 106 MMOL/L (98-107); CK-MB VALUE MASS < 1.0 NG/ML (<3.6); CREATININE FOR GFR 0.65 MG/DL (0.55-1.30); GLOMERULAR FILTRATION RATE > 90.0 (>60); POTASSIUM SERUM 3.6 MMOL/L (3.5-5.1); SODIUM LEVEL 139 MMOL/L (136-145)
[2025-09-15 14:07] LABS: CPK CREATINE PHOSPHOKINASE 53 U/L (34-145)
[2025-09-15 14:22] LABS: CK-MB VALUE MASS < 1.0 NG/ML (<3.6)
[2025-09-15 14:23] LABS: CPK CREATINE PHOSPHOKINASE 41 U/L (34-145)
[2025-09-15] MEDS: ACETAMINOPHEN *IV* 1,000 MG in IV 1 EA IV ONE (14:24)
[2025-09-15] MEDS: ONDANSETRON 4MG/2ML VIAL IV ONE (14:24)
[2025-09-15] MEDS ORDERED: ISOVUE-370 76% 100 ML VIAL As Ordered ONE (14:29)
[2025-09-15 17:13] VITALS: BP 102/68; TEMP 98.6; O2SAT 97
== END 2025-09-15 17:28 | disposition home or self-care (01) ==
LOC: M ED 12:15
DX: R07.9 Chest pain, unspecified (principal); R51.9 Headache, unspecified; J45.909 Unspecified asthma, uncomplicated; J44.9 Chronic obstructive pulmonary disease, unspecified; K21.9 Gastro-esophageal reflux disease without esophagitis; F43.10 Post-traumatic stress disorder, unspecified; F41.9 Anxiety disorder, unspecified; F32.A Depression, unspecified; Z88.0 Allergy status to penicillin; Z88.1 Allergy status to other antibiotic agents; Z88.8 Allergy status to other drugs, medicaments and biological substances; Z79.52 Long term (current) use of systemic steroids; Z79.899 Other long term (current) drug therapy; Z79.1 Long term (current) use of non-steroidal anti-inflammatories (NSAID)
CPT/HCPCS: 70450; 71045; 71275; 80048; 80076; 82550; 82553; 83690; 84439; 84443; 84484; 84703; 85025; 85610; 85652; 85730; 86140; 87486; 87581; 87633; 87798; 93005; 93041; 94760; 96365; 96375; 99285; J0134; J2405; Q9967

== ENCOUNTER → 2025-10-16 | Outpatient (CLI) | payer OTHER ==
[2025-10-16 09:34] LABS: BASO # 0.0 10^3/uL (0.0-0.2); BASO % 0.4 % (0.0-1.0); EOS # 0.1 10^3/uL (0.0-0.5); EOS % 0.7 % (0.0-3.0); LYMPH # 3.2 10^3/uL (1.5-5.0); LYMPH % 37.1 % (24.0-44.0); MONO # 0.4 10^3/uL (0.0-0.8); MONO % 4.5 % (2.0-8.0); NEUTROPHILS # 4.9 10^3/uL (1.5-8.5); NEUTROPHILS % 56.9 % (36.0-66.0); PLATELET COUNT, AUTOMATED 280 10^3/uL (150-450)
[2025-10-16 10:01] LABS: ALT/SGPT 12 U/L (7.0-40); AST/SGOT 12 U/L (<34); CALCIUM LEVEL 8.0 MG/DL (8.5-10.1); CARBON DIOXIDE LEVEL 21 MMOL/L (20-31); CHLORIDE LEVEL 111 MMOL/L (98-107); CREATININE FOR GFR 0.71 MG/DL (0.55-1.30); GLOMERULAR FILTRATION RATE > 90.0 (>60); POTASSIUM SERUM 3.9 MMOL/L (3.5-5.1); SODIUM LEVEL 141 MMOL/L (136-145)
== END ==
LOC: M EKG 08:48
PROVIDERS: ATTEND Registered Nurse Psychiatric/Mental Health
DX: F41.1 Generalized anxiety disorder (principal)